=== PATIENT | male | born 1950 | race Caucasian/White ===

== ENCOUNTER 2016-07-20 10:22 | Outpatient (CLI) | payer MEDICARE, MEDICAID ==
[~2016-07-20 10:22] MED LIST: FERUMOXYTOL (NON-ESRD) 510 MG/NS 100 ML IV PRN; NORMAL SALINE 250 ML IV PRN
[2016-07-20 11:13] VITALS: BP 141/81
== END 2016-07-20 11:39 ==
LOC: II 10:22 → 5TH 10:24 → II 11:39
PROVIDERS: ATTEND Specialist
PROC: 3E033GC Introduction of Other Therapeutic Substance into Peripheral Vein, Percutaneous Approach (ICD-10-PCS; principal; 2016-07-20)
DX: D50.9 Iron deficiency anemia, unspecified (principal); N18.3 Chronic kidney disease, stage 3 (moderate)
CPT/HCPCS: 96365; Q0138

== ENCOUNTER 2016-09-09 06:28 | Emergency (ER) | payer MEDICARE ==
[2016-09-09] MEDS ORDERED: DILTIAZEM HCL INJ 25 MG/5 ML VIAL IV ONE (06:55)
[2016-09-09] MEDS ORDERED: NORMAL SALINE 1000 ML 1,000 ML IV ONE (06:55)
--- NOTE | 2016-09-09 07:16 | ER Document Report ---
ED General - General Chief Complaint: Weakness Stated Complaint: NOT FEELING WELL Mode of Arrival: Medic Information source: Patient, [facility] Records Notes: 66 yr old male hx of afib presents with complaints of nausea and vomiting last night. pt notes that he has been feeling weak since his left bka in [facility], has had social workers at his house trying ot help him but no assistance has been given. pt states he lives alone but has friends that help him. TRAVEL OUTSIDE OF THE [place] IN LAST 30 DAYS: No - HPI Onset: Other Onset/Duration: Persistent Quality of pain: No pain Severity: Mild Pain Level: Denies Associated symptoms: Nausea, Vomiting, Weakness Exacerbated by: Denies Relieved by: Denies Similar symptoms previously: No Recently seen / treated by doctor: No - Related Data Allergies/Adverse Reactions: No Known Allergies Allergy (Verified 04/02/13 15:01) Past Medical History - Social History Smoking Status: Never Smoker Cigarette use (# per day): No Chew tobacco use (# tins/day): No Smoking Education Provided: No Family History: Reviewed & Not Pertinent - Past Medical History Cardiac Medical History: Reports: Hx Atrial Fibrillation, Hx Hypercholesterolemia, Hx Hypertension Pulmonary Medical History: Neurological Medical History: Denies: Hx Cerebrovascular Accident Endocrine Medical History: Reports: Hx Diabetes Mellitus Type 2 GI Medical History: Reports: Hx Ulcer Infectious Medical History: Past Surgical History: Reports: Hx Orthopedic Surgery - L leg - Immunizations Hx Diphtheria, Pertussis, Tetanus Vaccination: Yes Hx Pneumococcal Vaccination: 07/08/08 Review of Systems - Review of Systems Notes: REVIEW OF SYSTEMS: CONSTITUTIONAL : Denies fever, chills, or sweats. Denies recent illness. EENT: Denies eye, ear, throat, or mouth pain or symptoms. Denies nasal or sinus congestion or discharge. Denies throat, tongue, or mouth swelling or difficulty swallowing. CARDIOVASCULAR: Denies chest pain. Denies palpitations or racing or irregular heart beat. Denies ankle edema. RESPIRATORY: Denies cough, cold, or chest congestion. Denies shortness of breath, difficulty breathing, or wheezing. GASTROINTESTINAL: Admits to nausea vomiting GENITOURINARY: Denies difficulty urinating, painful urination, burning, frequency, blood in urine, or discharge. MUSCULOSKELETAL: Denies back or neck pain or stiffness. Denies joint pain or swelling. SKIN: Denies rash, lesions or sores. HEMATOLOGIC : Denies easy bruising or bleeding. LYMPHATIC: Denies swollen, enlarged glands. NEUROLOGICAL: Admits to generalized weakness PSYCHIATRIC: Denies anxiety or stress. Denies depression, suicidal ideation, or homicidal ideation. ALL OTHER SYSTEMS REVIEWED AND NEGATIVE. Dictation was performed using [email or web address] voice recognition software PHYSICAL EXAMINATION: GENERAL: Obese female no acute distress HEAD: Atraumatic, normocephalic. EYES: Pupils equal round and reactive to light, extraocular movements intact, sclera anicteric, conjunctiva are normal. ENT: Nares patent, oropharynx clear without exudates. Moist mucous membranes. NECK: Normal range of motion, supple without lymphadenopathy LUNGS: Breath sounds clear to auscultation bilaterally and equal. No wheezes rales or rhonchi. HEART: A. fib RVR ABDOMEN: Soft, nontender, nondistended abdomen. No guarding, no rebound. No masses appreciated. Musculoskeletal: Left BKA NEUROLOGICAL: Cranial nerves grossly intact. Normal speech, normal gait. Normal sensory, motor exams PSYCH: Normal mood, normal affect. SKIN: Warm, Dry, normal turgor, no rashes or lesions noted. Physical Exam - Vital signs Vitals: Resp BP Pulse Ox 11 L 177/111 H 99 09/09/16 06:47 09/09/16 06:47 09/09/16 06:47 Course - Re-evaluation Re-evalutation: 09/09/16 07:16 Physical examination does note A. fib RVR, patient has not been able to hold down his Cardizem at home, he is given a first dose here, lab work for septic workup is pending 09/09/16 08:38 Patient's A. fib RVR has resolved with Cardizem, his laboratory otherwise notes no significant abnormality, at this point I have no specific reason to admit the patient as he is medically stable. Patient has been instructed to follow- up with primary care physician and I will consult social media campaign manager for assistance at home After performing a Medical Screening Examination, I estimate there is LOW risk for ACUTE CORONARY SYNDROME, RESPIRATORY FAILURE, SEPSIS OR MENINGITIS, thus I consider the discharge disposition reasonable. The patient and I have discussed the diagnosis and risks, and we agree with discharging home with close follow- up. We also discussed returning to the Emergency Department immediately if new or worsening symptoms occur. We have discussed the symptoms which are most concerning (e.g., changing or worsening pain, trouble swallowing or breathing, neck stiffness, fever) that necessitate immediate return. - Vital Signs Vital signs: Temp Pulse Resp BP Pulse Ox 15 147/102 H 99 09/09/16 08:01 09/09/16 08:01 09/09/16 08:01 - Laboratory Result Diagrams: 09/09/16 06:59 09/09/16 06:59 Laboratory results interpreted by me: 09/09/16 09/09/16 09/09/16 06:59 06:59 08:00 RDW 14.5 H BUN 22 H Glucose 245 H Urine Protein >=500 H Urine Glucose (UA) 50 H Urine Blood SMALL H - Diagnostic Test Radiology reviewed: Image reviewed, Reports reviewed - EKG Interpretation by Me EKG shows normal: Sinus rhythm, [place], Intervals, QRS Complexes Rate: Tachycardia Rhythm: A.Fib Discharge - Discharge Clinical Impression: Atrial fibrillation with RVR Nausea & vomiting Qualifiers: Vomiting type: unspecified Vomiting Intractability: non-intractable Qualified Code(s): R11.2 - Nausea with vomiting, unspecified Hypertension Qualifiers: Hypertension type: essential hypertension Qualified Code(s): I10 - Essential ( primary) hypertension Condition: Stable Disposition: HOME, SELF-CARE Instructions: Vomiting ([facility]) Additional Instructions: Follow up with your physician tomorrow for further care or return to the ED IMMEDIATELY if symptoms worsen or new concerns occur Prescriptions: Ondansetron [Zofran Odt] 8 mg PO Q6 #14 tab.[email or web address]
[2016-09-09 07:23] LABS: VENOUS BLOOD BASE EXCESS -0.6 mmol/L; VENOUS BLOOD HCO3 25.3 mmol/L (20-32); VENOUS BLOOD PH 7.36 (7.30-7.42)
[2016-09-09 07:32] LABS: ABSOLUTE EOSINOPHILS # (AUTO) 0.2 10^3/uL (0.0-0.6); ABSOLUTE LYMPHOCYTES (AUTO) 1.8 10^3/uL (0.5-4.7); ABSOLUTE MONOCYTES (AUTO) 0.5 10^3/uL (0.1-1.4); ABSOLUTE NEUT (AUTO) 6.2 10^3/uL (1.7-8.2); BASOPHILS % (AUTO) 0.2 % (0-2); EOSINOPHILS % (AUTO) 2.2 % (0-6); HEMOGLOBIN 15.1 g/dL (13.5-17.0); HGB HCT DIFFERENCE 0.3; LYMPHOCYTES % (AUTO) 20.7 % (13-45); MEAN CORPUSCULAR HEMOGLOBIN 28.5 pg (27.0-33.4); MEAN CORPUSCULAR HGB CONC 33.6 g/dL (32.0-36.0); MEAN CORPUSCULAR VOLUME 85 fl (80-97); MONOCYTES % (AUTO) 5.7 % (3-13); RED BLOOD COUNT 5.31 10^6/uL (4.35-5.55); RED CELL DISTRIBUTION WIDTH 14.5 % (11.5-14.0); SEGMENTED NEUTROPHILS % (AUTO) 71.2 % (42-78); WHITE BLOOD COUNT 8.7 10^3/uL (4.0-10.5)
[2016-09-09 07:41] LABS: ALANINE AMINOTRANSFERASE 22 U/L (21-72); ALBUMIN 3.9 g/dL (3.5-5.0); ALKALINE PHOSPHATASE 100 U/L (38-126); ANION GAP 13 (5-19); ASPARTATE AMINO TRANSFERASE 22 U/L (17-59); BILIRUBIN,TOTAL 0.9 mg/dL (0.2-1.3); BLOOD UREA NITROGEN 22 mg/dL (7-20); CALCIUM 10.1 mg/dL (8.4-10.2); CARBON DIOXIDE 25 mmol/L (22-30); CHLORIDE 103 mmol/L (98-107); CREATININE RESULT 0.82 mg/dL (0.52-1.25); GLUCOSE 245 mg/dL (75-110); POTASSIUM 4.1 mmol/L (3.6-5.0); SODIUM 141.4 mmol/L (137-145); TOTAL PROTEIN 7.8 g/dL (6.3-8.2)
[2016-09-09 07:48] LABS: PROTHROMBIN TIME 13.5 SEC (11.4-15.4)
[2016-09-09 08:26] LABS: APPEARANCE,URINE CLEAR; BILIRUBIN,URINE NEGATIVE (NEGATIVE); GLUCOSE, URINE 50 mg/dL (NEGATIVE); KETONES,URINE NEGATIVE (NEGATIVE); LEUKOCYTE ESTERASE,URINE NEGATIVE (NEGATIVE); NITRITE,URINE NEGATIVE (NEGATIVE); PROTEIN,URINE >=500 mg/dL (NEGATIVE); URINE SPECIFIC GRAVITY 1.015; UROBILINOGEN,URINE NEGATIVE mg/dL (<2.0)
--- NOTE | 2016-09-09 09:45 | EKG REPORT ---
SEVERITY:- ABNORMAL ECG - ATRIAL FIBRILLATION, V-RATE 80-135 BORDERLINE T ABNORMALITIES, ANT-LAT LEADS : Confirmed by: Behzad Castro MD 09-Sep-2016 09:44:54
[2016-09-09 10:05] VITALS: BP 161/108
== END 2016-09-09 09:45 | disposition home or self-care (01) ==
LOC: ER 06:28
DX: I48.91 Unspecified atrial fibrillation (principal); I10 Essential (primary) hypertension; E11.9 Type 2 diabetes mellitus without complications; R00.0 Tachycardia, unspecified; R53.1 Weakness; R11.2 Nausea with vomiting, unspecified; Z89.512 Acquired absence of left leg below knee; E66.9 Obesity, unspecified; Z79.899 Other long term (current) drug therapy
CPT/HCPCS: 93005; 99285; 96361; 51701; 96374; 36415; 87040; 87086; 82962; 85025; 85610; 87077; 80053; 81001; 87186; 82803; 83605; 71010; 93010; J3490; J7030

== ENCOUNTER 2016-09-24 11:33 | Emergency (ER) | payer MEDICARE ==
[2016-09-24] MEDS ORDERED: ASPIRIN 81 MG TABLET, CHEWABLE PO ONE (11:54)
[2016-09-24] MEDS ORDERED: DILTIAZEM HCL INJ 25 MG/5 ML VIAL IV ONE (12:03)
[2016-09-24 12:09] LABS: ABSOLUTE EOSINOPHILS # (AUTO) 0.3 10^3/uL (0.0-0.6); ABSOLUTE LYMPHOCYTES (AUTO) 1.6 10^3/uL (0.5-4.7); ABSOLUTE MONOCYTES (AUTO) 0.5 10^3/uL (0.1-1.4); ABSOLUTE NEUT (AUTO) 5.6 10^3/uL (1.7-8.2); BASOPHILS % (AUTO) 0.4 % (0-2); EOSINOPHILS % (AUTO) 3.3 % (0-6); HEMATOCRIT 44.9 % (37.9-51.0); HEMOGLOBIN 15.2 g/dL (13.5-17.0); HGB HCT DIFFERENCE 0.7; LYMPHOCYTES % (AUTO) 20.4 % (13-45); MEAN CORPUSCULAR HEMOGLOBIN 28.5 pg (27.0-33.4); MEAN CORPUSCULAR HGB CONC 33.8 g/dL (32.0-36.0); MEAN CORPUSCULAR VOLUME 84 fl (80-97); MONOCYTES % (AUTO) 5.9 % (3-13); RED BLOOD COUNT 5.32 10^6/uL (4.35-5.55); RED CELL DISTRIBUTION WIDTH 14.1 % (11.5-14.0)
[2016-09-24 12:19] LABS: ALANINE AMINOTRANSFERASE 19 U/L (21-72); ALBUMIN 3.4 g/dL (3.5-5.0); ALKALINE PHOSPHATASE 82 U/L (38-126); ANION GAP 11 (5-19); ASPARTATE AMINO TRANSFERASE 11 U/L (17-59); BILIRUBIN,DIRECT 0.4 mg/dL (0.0-0.4); BILIRUBIN,TOTAL 0.8 mg/dL (0.2-1.3); BLOOD UREA NITROGEN 16 mg/dL (7-20); CALCIUM 9.7 mg/dL (8.4-10.2); CARBON DIOXIDE 29 mmol/L (22-30); CHLORIDE 104 mmol/L (98-107); CREATINE KINASE 24 U/L (55-170); CREATININE RESULT 0.97 mg/dL (0.52-1.25); GLUCOSE 280 mg/dL (75-110); POTASSIUM 4.3 mmol/L (3.6-5.0); SODIUM 144.3 mmol/L (137-145); TOTAL PROTEIN 6.6 g/dL (6.3-8.2)
[2016-09-24 12:31] LABS: CREATINE KINASE MB 0.37 ng/mL (<4.55); TROPONIN I 0.014 ng/mL
--- NOTE | 2016-09-24 13:23 | ER Document Report ---
ED General - General Chief Complaint: Arrhythmia Stated Complaint: ABSCESS Mode of Arrival: Ambulatory Information source: Patient Notes: 66-year-old male the and arm presents with roommates concern for possible abscess. Patient has a history of A. fib did not take his medication this morning. It is noted to be in A. fib RVR. Patient denies any other concerns at this time denies any fevers or chills nausea vomiting or diarrhea TRAVEL OUTSIDE OF THE [place] IN LAST 30 DAYS: No - HPI Onset: Last week Onset/Duration: Persistent Quality of pain: No pain Severity: Mild Pain Level: Denies Associated symptoms: Other Exacerbated by: Denies Relieved by: Denies Similar symptoms previously: Yes Recently seen / treated by doctor: Yes - Related Data Allergies/Adverse Reactions: No Known Allergies Allergy (Verified 04/02/13 15:01) Past Medical History - Social History Smoking Status: Never Smoker Cigarette use (# per day): No Chew tobacco use (# tins/day): No Smoking Education Provided: No Family History: Reviewed & Not Pertinent - Past Medical History Cardiac Medical History: Reports: Hx Atrial Fibrillation, Hx Hypercholesterolemia, Hx Hypertension Pulmonary Medical History: Neurological Medical History: Denies: Hx Cerebrovascular Accident Endocrine Medical History: Reports: Hx Diabetes Mellitus Type 2 GI Medical History: Reports: Hx Ulcer Infectious Medical History: Past Surgical History: Reports: Hx Orthopedic Surgery - L leg - Immunizations Hx Diphtheria, Pertussis, Tetanus Vaccination: Yes Hx Pneumococcal Vaccination: 07/08/08 Review of Systems - Review of Systems Notes: REVIEW OF SYSTEMS: CONSTITUTIONAL : Denies fever, chills, or sweats. Denies recent illness. EENT: Denies eye, ear, throat, or mouth pain or symptoms. Denies nasal or sinus congestion or discharge. Denies throat, tongue, or mouth swelling or difficulty swallowing. CARDIOVASCULAR: A. fib RESPIRATORY: Denies cough, cold, or chest congestion. Denies shortness of breath, difficulty breathing, or wheezing. GASTROINTESTINAL: Denies abdominal pain or distention. Denies nausea, vomiting , or diarrhea. Denies blood in vomitus, stools, or per rectum. Denies black, tarry stools. Denies constipation. GENITOURINARY: Denies difficulty urinating, painful urination, burning, frequency, blood in urine, or discharge. MUSCULOSKELETAL: Denies back or neck pain or stiffness. Denies joint pain or swelling. SKIN: Abscess on buttocks. HEMATOLOGIC : Denies easy bruising or bleeding. LYMPHATIC: Denies swollen, enlarged glands. NEUROLOGICAL: Denies confusion or altered mental status. Denies passing out or loss of consciousness. Denies dizziness or lightheadedness. Denies headache. Denies weakness or paralysis or loss of use of either side. Denies problems with gait or speech. Denies sensory loss, numbness, or tingling. Denies seizures. PSYCHIATRIC: Denies anxiety or stress. Denies depression, suicidal ideation, or homicidal ideation. ALL OTHER SYSTEMS REVIEWED AND NEGATIVE. Dictation was performed using [employer] voice recognition software PHYSICAL EXAMINATION: GENERAL: Well-appearing, well-nourished and in no acute distress. HEAD: Atraumatic, normocephalic. EYES: Pupils equal round and reactive to light, extraocular movements intact, sclera anicteric, conjunctiva are normal. ENT: Nares patent, oropharynx clear without exudates. Moist mucous membranes. NECK: Normal range of motion, supple without lymphadenopathy LUNGS: Breath sounds clear to auscultation bilaterally and equal. No wheezes rales or rhonchi. HEART: Irregular rate rhythm tachycardic ABDOMEN: Soft, nontender, nondistended abdomen. No guarding, no rebound. No masses appreciated. Musculoskeletal: Left BKA NEUROLOGICAL: Cranial nerves grossly intact. Normal speech, normal gait. Normal sensory, motor exams PSYCH: Normal mood, normal affect. SKIN: bilateral sacral decub ulcers stage 1 Physical Exam - Vital signs Vitals: Pulse Ox 99 09/24/16 12:01 Course - Re-evaluation Re-evalutation: 09/24/16 13:24 No abscess was noted, I examined the back with nurse present and note bilateral sacral decubitus ulcers, dressings have been placed. Patient was given Cardizem for A. fib RVR and heart rate improved significantly. Patient denies any other concerns states he feels fine at this time I will DC home since he looks so well After performing a Medical Screening Examination, I estimate there is LOW risk for ACUTE CORONARY SYNDROME, RESPIRATORY FAILURE, SEPSIS OR MENINGITIS, thus I consider the discharge disposition reasonable. The patient and I have discussed the diagnosis and risks, and we agree with discharging home with close follow- up. We also discussed returning to the Emergency Department immediately if new or worsening symptoms occur. We have discussed the symptoms which are most concerning (e.g., changing or worsening pain, trouble swallowing or breathing, neck stiffness, fever) that necessitate immediate return. - Vital Signs Vital signs: Temp Pulse Resp BP Pulse Ox 99 09/24/16 12:01 - Laboratory Result Diagrams: 09/24/16 11:51 09/24/16 11:51 Laboratory results interpreted by me: 09/24/16 09/24/16 09/24/16 11:51 11:51 11:56 RDW 14.1 H Glucose 280 H POC Glucose 269 H AST 11 L ALT 19 L Creatine Kinase 24 L Albumin 3.4 L Discharge - Discharge Clinical Impression: Atrial fibrillation with RVR Sacral decubitus ulcer Qualifiers: Pressure ulcer stage: stage 1 Qualified Code(s): L89.151 - Pressure ulcer of sacral region, stage 1 Condition: Stable Disposition: HOME, SELF-CARE Instructions: Decubitus Ulcer ([facility]) Additional Instructions: Please follow-up with your primary care physician for further treatment and care of your decubitus ulcer Please take your atrial fibrillation medication as prescribed Return immediately if there are any other concerns
--- NOTE | 2016-09-24 13:45 | EKG REPORT ---
SEVERITY:- ABNORMAL ECG - ATRIAL FIBRILLATION, V-RATE 97-183 BORDERLINE T ABNORMALITIES, ANT-LAT LEADS : Confirmed by: Behzad Castro MD 24-Sep-2016 13:44:31
[2016-09-24 14:49] VITALS: BP 175/128
== END 2016-09-24 14:49 | disposition home or self-care (01) ==
LOC: ER 11:33
DX: L89.151 Pressure ulcer of sacral region, stage 1 (principal); I48.91 Unspecified atrial fibrillation; L02.91 Cutaneous abscess, unspecified
CPT/HCPCS: 93005; 99285; 96374; 36415; 82553; 82962; 82550; 85025; 80053; 84484; 93010; J3490

== ENCOUNTER 2016-10-14 17:38 | Inpatient (IN) | payer MEDICARE, MEDICAID ==
--- NOTE | 2016-10-14 18:08 | ER Document Report ---
ED General - General Stated Complaint: ALTERED MENTAL STATUS Time seen by provider: 18:03 Mode of Arrival: Ambulatory Information source: Patient Notes: This is a 66-year-old man with multiple medical problems is brought in by EMS because of decreased responsiveness, not eating and drinking, increased weakness. The patient lives alone and EMS was notified by the patient's friend who came over. He has a history of hypertension, atrial fibrillation ([place] ), dyslipidemia, BPH and he has a left bka. The patient was formerly a resident of [facility] and discharged himself approximately one month ago. TRAVEL OUTSIDE OF THE [place] IN LAST 30 DAYS: No - HPI Onset: Last week Onset/Duration: Gradual Quality of pain: No pain Severity: None Pain Level: Denies Associated symptoms: Nausea, Weakness. denies: Fever, Shortness of breath Exacerbated by: Denies Relieved by: Denies Similar symptoms previously: No Recently seen / treated by doctor: No - Related Data Allergies/Adverse Reactions: No Known Allergies Allergy (Verified 04/02/13 15:01) Home Medications: Current Home Medications Apixaban [Eliquis 2.5 mg Tablet] 2.5 mg PO Q12H 10/14/16 [History] Diltiazem HCl [Cartia Xt] 180 mg PO Q12H 10/14/16 [History] Docusate Sodium [Dok] 100 mg PO BID 10/14/16 [History] Folic Acid [Folvite 1 mg Tablet] 1 mg PO DAILY 10/14/16 [History] Hydralazine HCl 50 mg PO Q8H 10/14/16 [History] Lisinopril [Prinivil 2.5 mg Tablet] 2.5 mg PO DAILY 10/14/16 [History] Ondansetron [Zofran Odt] 8 mg PO Q6H 10/14/16 [History] Pravastatin Sodium [Pravachol] 40 mg PO DAILY 10/14/16 [History] Sertraline HCl [Zoloft 50 mg Tablet] 50 mg PO DAILY 10/14/16 [History] Tamsulosin HCl [Flomax 0.4 mg Cap.sr] 0.4 mg PO DAILY 10/14/16 [History] Past Medical History - General Information source: Patient, Emergency Med Personnel - Social History Smoking Status: Never Smoker Cigarette use (# per day): No Chew tobacco use (# tins/day): No Frequency of alcohol use: None Drug Abuse: None Lives with: Alone Family History: Reviewed & Not Pertinent Patient has suicidal ideation: No Patient has homicidal ideation: No - Past Medical History Cardiac Medical History: Reports: Hx Atrial Fibrillation, Hx Hypercholesterolemia, Hx Hypertension Pulmonary Medical History: Neurological Medical History: Denies: Hx Cerebrovascular Accident Endocrine Medical History: Reports: Hx Diabetes Mellitus Type 2 GI Medical History: Reports: Hx Ulcer Infectious Medical History: Past Surgical History: Reports: Hx Orthopedic Surgery - L leg - Immunizations Hx Diphtheria, Pertussis, Tetanus Vaccination: Yes Hx Pneumococcal Vaccination: 07/08/08 Review of Systems - Review of Systems Notes: Review of systems: Constitutional: Denies fever, chills. EENT: Denies ear pain, sinus tenderness, throat pain, throat swelling. Cardiovascular: Tachycardia Respiratory: Denies wheezing, cough, hemoptysis. Abdomen: Decreased by mouth intake. Denies abdominal pain, nausea, vomiting, diarrhea. Denies BRBPR or melena. Genitourinary: Denies dysuria, pyuria, hematuria, flank pain. Musculoskeletal: Left BKA. Denies joint pain or swelling, denies back pain. Neurologic: Increased weakness. Denies headache, photophobia. Skin: Denies rash, lesions. Physical Exam - Vital signs Vitals: Temp Resp Pulse Ox 99.7 F 22 H 100 10/14/16 17:50 10/14/16 17:50 10/14/16 17:50 Notes: Physical exam: GENERAL: 66-year-old man, alert, minimally verbal (baseline apparently), no acute distress, he looks quite dehydrated, he is tachycardic. Temperature 99.7 rectally. HEAD: Atraumatic, normocephalic. EYES: Pupils equal round and reactive to light, extraocular movements intact, sclera anicteric, conjunctiva are normal. ENT: Dry mucous membranes. NECK: Normal range of motion, supple without lymphadenopathy or JVD. LUNGS: Breath sounds clear to auscultation bilaterally and equal. No wheezes rales or rhonchi. HEART: Tachycardia without murmurs, rubs or gallops. Back: Patient does have grade 1 sacral decubiti which is fairly superficial. Rectal: Brown stool, sent for study Perineum: No evidence of infection Penis: There is pus at the urethral meatus ABDOMEN: Soft, normoactive bowel sounds. No tenderness to palpation. No guarding, no rebound. No masses appreciated. EXTREMITIES: Left BKA. No clubbing or cyanosis. NEUROLOGICAL: Cranial nerves II through XII grossly intact. Speech minimal ( reported by EMS to be at baseline). He is nonambulatory at baseline. SKIN: Appears dehydrated. Course - Vital Signs Vital signs: Temp Pulse Resp BP Pulse Ox 99.7 F 21 H 142/103 H 98 10/14/16 17:50 10/14/16 20:19 10/14/16 22:01 10/14/16 22:01 - Laboratory Result Diagrams: 10/14/16 18:30 10/14/16 18:30 Laboratory results interpreted by me: 10/14/16 10/14/16 10/14/16 18:15 18:30 18:30 RBC 5.72 H RDW 14.7 H Sodium 145.7 H BUN 21 H Glucose 239 H AST 16 L Creatine Kinase 198 H Urine Protein >=500 H Urine Glucose (UA) 50 H Urine Blood MODERATE H Ur Leukocyte Esterase LARGE H - Diagnostic Test Radiology reviewed: Image reviewed, Reports reviewed - Chest x-ray shows no infiltrates - EKG Interpretation by Me Rate: Tachycardia Rhythm: A.Fib - EKG shows atrial fibrillation with a ventricular rate of 129, nonspecific ST changes laterally. Critical Care Note - Critical Care Note Total time excluding time spent on procedures (mins): 60 Discharge - Discharge Clinical Impression: A. fib with RVR, UTI, dehydration Condition: Serious Disposition: ADMITTED INPATIENT Admitting Provider: Hospitalist - Dr. Rand Unit Admitted: [facility]
[2016-10-14] MEDS ORDERED: NORMAL SALINE 1000 ML 1,000 ML IV PRN ×2 (18:11→19:57)
[2016-10-14 18:50] LABS: APPEARANCE,URINE CLOUDY; BILIRUBIN,URINE NEGATIVE (NEGATIVE); GLUCOSE, URINE 50 mg/dL (NEGATIVE); KETONES,URINE NEGATIVE (NEGATIVE); LEUKOCYTE ESTERASE,URINE LARGE (NEGATIVE); NITRITE,URINE NEGATIVE (NEGATIVE); PROTEIN,URINE >=500 mg/dL (NEGATIVE); URINE SPECIFIC GRAVITY 1.023; UROBILINOGEN,URINE NEGATIVE mg/dL (<2.0)
[2016-10-14 18:51] LABS: ABSOLUTE EOSINOPHILS # (AUTO) 0.1 10^3/uL (0.0-0.6); ABSOLUTE LYMPHOCYTES (AUTO) 1.7 10^3/uL (0.5-4.7); ABSOLUTE MONOCYTES (AUTO) 0.6 10^3/uL (0.1-1.4); ABSOLUTE NEUT (AUTO) 7.1 10^3/uL (1.7-8.2); BASOPHILS % (AUTO) 0.5 % (0-2); EOSINOPHILS % (AUTO) 0.8 % (0-6); HEMATOCRIT 47.9 % (37.9-51.0); HEMOGLOBIN 16.1 g/dL (13.5-17.0); HGB HCT DIFFERENCE 0.4; LYMPHOCYTES % (AUTO) 18.1 % (13-45); MEAN CORPUSCULAR HEMOGLOBIN 28.1 pg (27.0-33.4); MEAN CORPUSCULAR HGB CONC 33.5 g/dL (32.0-36.0); MEAN CORPUSCULAR VOLUME 84 fl (80-97); MONOCYTES % (AUTO) 6.5 % (3-13); RED BLOOD COUNT 5.72 10^6/uL (4.35-5.55); RED CELL DISTRIBUTION WIDTH 14.7 % (11.5-14.0); SEGMENTED NEUTROPHILS % (AUTO) 74.1 % (42-78); WHITE BLOOD COUNT 9.6 10^3/uL (4.0-10.5)
[2016-10-14 18:56] LABS: PROTHROMBIN TIME 14.1 SEC (11.4-15.4)
[2016-10-14 19:05] LABS: URINE BARBITURATES SCREEN NEGATIVE; URINE METHADONE SCREEN NEGATIVE; URINE OPIATES LOW NEGATIVE; URINE PHENCYCLIDINE SCREEN NEGATIVE
[2016-10-14 19:12] LABS: ALANINE AMINOTRANSFERASE 24 U/L (21-72); ALBUMIN 3.7 g/dL (3.5-5.0); ALKALINE PHOSPHATASE 89 U/L (38-126); ANION GAP 17 (5-19); ASPARTATE AMINO TRANSFERASE 16 U/L (17-59); BILIRUBIN,DIRECT 0.4 mg/dL (0.0-0.4); BILIRUBIN,TOTAL 1.2 mg/dL (0.2-1.3); BLOOD UREA NITROGEN 21 mg/dL (7-20); CALCIUM 9.8 mg/dL (8.4-10.2); CARBON DIOXIDE 24 mmol/L (22-30); CHLORIDE 105 mmol/L (98-107); CREATINE KINASE 198 U/L (55-170); CREATININE RESULT 0.84 mg/dL (0.52-1.25); GLUCOSE 239 mg/dL (75-110); POTASSIUM 4.4 mmol/L (3.6-5.0); SODIUM 145.7 mmol/L (137-145); TOTAL PROTEIN 7.5 g/dL (6.3-8.2)
[2016-10-14 19:21] LABS: CREATINE KINASE MB 0.9 ng/mL (<4.55)
[2016-10-14 19:25] LABS: TROPONIN I 0.03 ng/mL
[2016-10-14] MEDS ORDERED: CEFTRIAXONE 2 GM/D5W RTU 50 ML IV ONE (19:33)
[2016-10-14] MEDS ORDERED: ONDANSETRON HCL INJ/PF 4 MG/2 ML SDV IV ONE (19:40)
[2016-10-14] MEDS ORDERED: MORPHINE SULFATE 10 MG/ML INJ IV PRN (19:40)
[2016-10-14] MEDS ORDERED: DILTIAZEM HCL INJ 25 MG/5 ML VIAL IV ONE (19:57)
--- NOTE | 2016-10-14 20:50 | EKG REPORT ---
SEVERITY:- ABNORMAL ECG - ATRIAL FIBRILLATION, V-RATE 82-197 BORDERLINE PROLONGED QT INTERVAL : Confirmed by: Debra Hummel 14-Oct-2016 20:49:11
[2016-10-15] MEDS ORDERED: IPRATROPIUM/ALBUTEROL 0.5-2.5 MG/3 ML AMPUL NEB PRN (00:12)
[2016-10-15] MEDS ORDERED: DEXTROSE 40% GEL 15 GM TUBE PO PRN ×2 (00:12)
[2016-10-15] MEDS ORDERED: DEXTROSE 50%-WATER 25 GM/50 ML DISP.SYRIN IV PRN ×2 (00:12)
[2016-10-15] MEDS ORDERED: INSULIN LISPRO 100 UNIT/ML 3 ML VIAL SUBCUT PRN (00:12)
[2016-10-15] MEDS ORDERED: GLUCAGON,HUMAN RECOMB 1 MG INJ IM PRN (00:12)
[2016-10-15] MEDS ORDERED: 1/2 NORMAL SALINE 1,000 ML IV PRN (00:14)
[2016-10-15 00:15] LABS: ADD ON TESTING BLD IN LAB ACKNOWLEDGE
[2016-10-15] MEDS ORDERED: ENALAPRILAT DIHYDRATE INJ/PF 1.25 MG/1 ML SDV IV PRN (00:23)
[2016-10-15 00:31] LABS: MAGNESIUM 1.6 mg/dL (1.6-2.3)
[2016-10-15 00:33] LABS: ALCOHOL < 10 mg/dL (NONE DETECTED)
--- NOTE | 2016-10-15 00:57 | PDOC H&P ---
History of Present Illness Admission Date/PCP: 10/14/16 22:26 PCP Uncertain Patient complains of: AMS History of Present Illness: SLY SCHULTZ JR is a 66 year old obese male with reported underlying type II diabetes mellitus, chronic atrial fibrillation, on Eliquis for same hypertension, hyperlipidemia, and probable benign prostatic hypertrophy who presents to the emergency room by EMS for evaluation of above complaint. Patient has been discussed with emergency room physician who evaluated the patient. Patient is oriented only to the fact that he is in the hospital and basically answers virtually no questions and is able to provide no history whatsoever in terms of acute or chronic events, review of systems, personal habits, family history, etc. No friends or family are present. Old inpatient records are reviewed. He does look at speaker, and is cooperative when asked to perform basic tasks such as hand facilities director and flexion and extension of his arms but again, does not interact otherwise in a meaningful fashion and can provide no information, as noted above. He does deny being in pain. Speaks in a barely audible whisper. According to the emergency room physician notes, he was a resident at [facility] and discharged himself approximately one month ago. Review of old records reveals he has a habit of leaving the hospital AGAINST MEDICAL ADVICE. Lives alone; EMS was called by a friend who came over and found him to with decreased responsiveness, not eating or drinking, and increasing generalized weakness. Was initially noted to be in atrial fibrillation with rapid ventricular response , but this responded nicely to a single bolus dose of Cardizem. Cardizem drip has not been required. . Laboratory results are listed in [facility] and are reviewed. X-ray summary results are listed below, with full report(s) reviewed. . EKG reviewed. Social history/personal habits: No information available this point in time. Allergies/adverse reactions NKDA. Home medications home medications are reviewed by bottle review. Home medications initially autopopulated into [employer] may not accurately reflect patient's true medications, dosages, and/or frequencies. shift lab technician to reconcile medications. Unfortunately, patient cannot provide any information related to his medications /dosages/frequencies. REVIEW OF SYSTEMS: See history and present illness.No further information available this point in time. PHYSICAL EXAMINATION: 106.6 kg. Height is not recorded on the chart. Pulse 110 and slightly irregular. 99% saturation on room air. Manual blood pressure 150/98. Respirations are 16 and unlabored. Temperature 99.7. Obese somewhat chronically ill-appearing male who nevertheless appears a number of years younger than his stated age. He is awake alert and looking about the room somewhat. See history and present illness. The initial evaluating emergency room physician was asked to come to bedside, and did confirm that this has been patient's status basically since arrival in the emergency room. Skin is warm and dry. No grossly obvious evidence of rash in areas of skin examined. No subcutaneous nodules palpated. ENT: Hearing grossly normal to normal conversation. Tongue midline on protrusion pink and slightly tacky. Eyes: No scleral icterus. Pupils equal and reactive to light at 4 mm. Saxon conjunctivae. No raccoon eyes. Neck is supple and nontender to gentle active range of motion and palpation. Midline trachea. No palpable thyroid nodule mass enlargement or tenderness. Lymphatic: No palpable cervical or clavicular nodes. Neck and lymphatic exams limited by patient body habitus. Psychiatric: Not able to be adequately evaluated due to his current status. Lungs: Auscultation reveals clear and equal breath sounds bilaterally. No use of accessory respiratory muscles. Cardiovascular: Heart slightly irregular rate and rhythm, without gallop murmur or rub. No carotid or abdominal aortic bruits. No ankle or pedal edema. Faintly palpable dorsalis pedis pulse. He is status post left below-knee amputation. Abdomen: soft, obese, nontender with positive bowel sounds. Unable to adequately evaluate abdomen for masses or organomegaly due to body habitus. Extremities: Hands and right foot warm and dry. No calf tenderness to compression. No grossly obvious visual evidence of calf swelling. Gentle manipulation of lower extremities fails to reveal any obvious evidence of injury or instability to knee hips or ankle. Neurologic: Moves upper extremities grossly normally. Hand facilities director, biceps and triceps 5 over 5 and symmetric. Right Patellar reflex absent. Absent Babinski. Light touch can't be adequately determined due to his current status.. Dorsiflexion and plantarflexion of right foot 5 over 5. Past Medical History Cardiac Medical History: Reports: Atrial Fibrillation, Hyperlipidema, Hypertension Pulmonary Medical History: Neurological Medical History: Endocrine Medical History: Reports: Diabetes Mellitus Type 2 GI Medical History: Hematology: Denies: Anemia, Sickle Cell Disease Past Surgical History Past Surgical History: Reports: Orthopedic Surgery - L leg Social History Information Source: Emergency Med Personnel, [facility] Records Lives with: Alone Smoking Status: Never Smoker Frequency of Alcohol Use: None Hx Recreational Drug Use: No Drugs: None Hx Prescription Drug Abuse: No - Advance Directive Resuscitation Status: Full Code Surrogate healthcare decision maker:: Uncertain Family History Family History: Reviewed & Not Pertinent Parental Family History Reviewed: No - patient not able to provide any information related to same. Children Family History Reviewed: No - patient not able to provide any information related to same. Sibling(s) Family History Reviewed.: No - patient not able to provide any information related to same. Medication/Allergy Home Medications: Apixaban [Eliquis 2.5 mg Tablet] 2.5 mg PO Q12 10/15/16 Diltiazem HCl [Cartia Xt] 180 mg PO Q12 10/15/16 Docusate Sodium [Dok] 100 mg PO BID 10/15/16 Generlac 10gm/15ml 15 ml PO QHS 10/15/16 Insulin Aspart Protam & Aspart [Novolog Mix 70-30 Flexpen Syrn] 10 units SQ NOON 10/15/16 Insulin Glargine,Hum.rec.anlog [Lantus Solostar] 10 units SQ QHS 10/15/16 Ondansetron [Zofran Odt] 8 mg PO Q6H 10/15/16 RX: Folic Acid [Folvite 1 mg Tablet] 1 mg PO DAILY 10/15/16 RX: Hydralazine HCl [Apresoline 50 mg Tablet] 50 mg PO Q8 10/15/16 RX: Lisinopril [Prinivil 2.5 mg Tablet] 2.5 mg PO DAILY 10/15/16 RX: Pravastatin Sodium [Pravachol] 40 mg PO DAILY 10/15/16 Sertraline HCl [Zoloft 50 mg Tablet] 50 mg PO DAILY 10/15/16 Tamsulosin HCl [Flomax 0.4 mg Cap.sr] 0.4 mg PO QHS 10/15/16 Allergies/Adverse Reactions: No Known Allergies Allergy (Verified 04/02/13 15:01) Physical Exam Vital Signs: Temp Pulse Resp BP Pulse Ox 99.7 F 21 H 150/98 H 98 10/14/16 17:50 10/14/16 20:19 10/14/16 23:52 10/14/16 22:01 Results Laboratory Results: 10/14/16 23:25 Magnesium 1.6 10/14/16 23:25 Troponin I 0.021 Impressions: Chest X-Ray 10/14/16 18:08 IMPRESSION: NO ACUTE RADIOGRAPHIC FINDING IN THE CHEST. Assessment & Plan - Diagnosis (1) Atrial fibrillation with RVR Is this a current diagnosis for this admission?: YesPlan: Has not required Cardizem drip.Resume home medications as appropriate once these have been determined and reviewed. (2) Hypernatremia Is this a current diagnosis for this admission?: YesPlan: Appropriate IV fluids. Follow-up chemistry. (3) UTI (urinary tract infection) Qualifiers: Urinary tract infection type: site unspecified Is this a current diagnosis for this admission?: YesPlan: Blood and urine cultures. Previous culture results noted. Rocephin. Knee high SCD for DVT prophylaxis, ; with patient on systemic anticoagulation, no need for Lovenox or heparin at this point in time. Time spent in evaluation and management of patient: 53 minutes. (4) Anticoagulant long-term use Is this a current diagnosis for this admission?: YesPlan: Resume home medications as appropriate once these have been determined and reviewed. (5) Diabetes mellitus, type II Qualifiers: Diabetes mellitus complication status: with circulatory complication Diabetes mellitus middle or intermediate school principal insulin use: unspecified middle or intermediate school principal insulin use status Is this a current diagnosis for this admission?: YesPlan: Accu-Cheks with appropriate sliding scale coverage. Appears to be diet controlled diabetes mellitus. (6) Hyperlipidemia Qualifiers: Hyperlipidemia type: unspecified Qualified Code(s): E78.5 - Hyperlipidemia, unspecified Is this a current diagnosis for this admission?: YesPlan: Resume home medications as appropriate once these have been determined and reviewed. (7) Hypertension Qualifiers: Hypertension type: essential hypertension Qualified Code(s): I10 - Essential (primary) hypertension Is this a current diagnosis for this admission?: YesPlan: Resume home medications as appropriate once these have been determined and reviewed. (8) Acute encephalopathy Is this a current diagnosis for this admission?: YesPlan: Uncertain etiology. Suspect at least partially due to dehydration, along with urinary tract infection. Will check CT scan of brain without contrast. Swallow screen pending. Should clear with time and treatment. Discharge planning consult; patient likely not safe to live alone. - Inpatient Certification Based on my medical assessment, after consideration of the patient's comorbidities, presenting symptoms, or acuity I expect that the services needed warrant INPATIENT care.: Yes I certify that my determination is in accordance with my understanding of Medicare's requirements for reasonable and necessary INPATIENT services [42 CFR 412.3e].: Yes Medical Necessity: Significant Comorbidiites Make Outpatient Treatment Too Risky , Need Close Monitoring Due to Risk of Patient Decompensation, Need For IV Fluids, Need For Continuous Telemetry Monitoring, Need for IV Antibiotics, Risk of Complication if Not Cared For in Hospital Post Hospital Care: D/C or Transfer Summary
[2016-10-15] MEDS ORDERED: HYDRALAZINE HCL INJ/PF 20 MG/1 ML SDV IV PRN (06:05)
[2016-10-15 06:31] LABS: VENOUS BLOOD BASE EXCESS -3.3 mmol/L; VENOUS BLOOD HCO3 21.7 mmol/L (20-32); VENOUS BLOOD PCO2 39.2 mmHg (35-63); VENOUS BLOOD PH 7.36 (7.30-7.42)
[2016-10-15 06:35] LABS: ABSOLUTE EOSINOPHILS # (AUTO) 0.1 10^3/uL (0.0-0.6); ABSOLUTE LYMPHOCYTES (AUTO) 1.6 10^3/uL (0.5-4.7); ABSOLUTE MONOCYTES (AUTO) 0.7 10^3/uL (0.1-1.4); BASOPHILS % (AUTO) 0.2 % (0-2); EOSINOPHILS % (AUTO) 1.5 % (0-6); HEMATOCRIT 43.4 % (37.9-51.0); HEMOGLOBIN 14.4 g/dL (13.5-17.0); HGB HCT DIFFERENCE -0.2; LYMPHOCYTES % (AUTO) 19.4 % (13-45); MEAN CORPUSCULAR HGB CONC 33.2 g/dL (32.0-36.0); MEAN CORPUSCULAR VOLUME 84 fl (80-97); MONOCYTES % (AUTO) 7.9 % (3-13); RED BLOOD COUNT 5.15 10^6/uL (4.35-5.55); RED CELL DISTRIBUTION WIDTH 14.3 % (11.5-14.0); WHITE BLOOD COUNT 8.5 10^3/uL (4.0-10.5)
[2016-10-15 06:49] LABS: ANION GAP 13 (5-19); BLOOD UREA NITROGEN 19 mg/dL (7-20); CALCIUM 8.9 mg/dL (8.4-10.2); CARBON DIOXIDE 24 mmol/L (22-30); CHLORIDE 108 mmol/L (98-107); CREATININE RESULT 0.81 mg/dL (0.52-1.25); GLUCOSE 204 mg/dL (75-110); POTASSIUM 4.2 mmol/L (3.6-5.0); SODIUM 144.6 mmol/L (137-145)
[2016-10-15] MEDS ORDERED: (PENDING PHARMACY ID) (Diltiazem Hcl [Cartia Xt] 180 MG) PO SCH (09:45)
[2016-10-15] MEDS ORDERED: (PENDING PHARMACY ID) (Lisinopril [Prinivil 2.5 Mg Tablet] 2.5 MG) PO SCH (10:00)
[2016-10-15] MEDS ORDERED: (PENDING PHARMACY ID) (Pravastatin Sodium [Pravachol] 40 MG) PO SCH (10:00)
[2016-10-15] MEDS ORDERED: ENOXAPARIN SODIUM INJ 100 MG/1 ML DISP.SYRIN SUBCUT SCH (10:00)
[2016-10-15] MEDS ORDERED: METOPROLOL TARTRATE PF/INJ 5 MG/5 ML SDV IV SCH (12:00)
[2016-10-15] MEDS: CEFTRIAXONE 1 GM/D5W RTU 50 ML IV SCH (13:33)
[2016-10-15] MEDS: LISINOPRIL 5 MG TABLET PO SCH (13:34)
[2016-10-15] MEDS: SERTRALINE HCL 50 MG TABLET PO SCH (13:35)
[2016-10-15] MEDS: DOCUSATE SODIUM 100 MG CAPSULE PO SCH ×2 (13:35→18:10)
[2016-10-15] MEDS: FOLIC ACID 1 MG TABLET PO SCH (13:35)
[2016-10-15] MEDS: DILTIAZEM HCL 180 MG CAPSULE.CR PO SCH ×2 (13:36→22:51)
--- NOTE | 2016-10-15 15:40 | PDOC PROGRESS REPORT ---
Subjective Progress Note for:: 10/15/16 Subjective:: Patient feels no better or worse than when he arrived. He still seems to have difficulty speaking, and particular word finding and talking very softly. His affect is unusual. He is not sure how long his been feeling bad. Patient denies fever, chills, headache, new focal weakness, chest pain, shortness of breath, abdominal pain, nausea, vomiting, diarrhea, constipation. Physical Exam Vital Signs: Temp Pulse Resp BP Pulse Ox 99.7 F 135 H 25 H 135/107 H 97 10/14/16 17:50 10/15/16 12:13 10/15/16 08:00 10/15/16 13:36 10/15/16 10:31 GENERAL: No acute distress HEENT: Conjunctiva clear, nonicteric, moist mucous membranes, no JVD, midline trachea RESPIRATORY: Clear to auscultation bilaterally, no wheezes, no rhonchi CARDIAC: Regular rate and rhythm, no murmurs/gallops/rubs ABDOMEN: Soft, nondistended, nontender, positive bowel sounds, no rebound, no guarding EXTREMETIES: No edema, left BKA NEUROLOGIC: Alert, expressive aphasia, oriented to person/place/time, CN's grossly intact, no focal deficits SKIN: No rash, wounds PSYCH: Unusual affect Results Laboratory Results: 10/15/16 06:18 10/15/16 06:18 10/15/16 10/15/16 10/15/16 06:18 06:18 06:18 WBC 8.5 RBC 5.15 Hgb 14.4 Hct 43.4 MCV 84 MCH 28.0 MCHC 33.2 RDW 14.3 H Plt Count 174 Seg Neutrophils % 71.0 Lymphocytes % 19.4 Monocytes % 7.9 Eosinophils % 1.5 Basophils % 0.2 Absolute Neutrophils 6.0 Absolute Lymphocytes 1.6 Absolute Monocytes 0.7 Absolute Eosinophils 0.1 Absolute Basophils 0.0 VBG pH 7.36 VBG pCO2 39.2 VBG HCO3 21.7 VBG Base Excess -3.3 Sodium 144.6 Potassium 4.2 Chloride 108 H Carbon Dioxide 24 Anion Gap 13 BUN 19 Creatinine 0.81 Est GFR ( Amer) > 60 Est GFR (Non-Af Amer) > 60 Glucose 204 H Calcium 8.9 10/15/16 06:18 Troponin I 0.023 Impressions: Chest X-Ray 10/14/16 18:08 IMPRESSION: NO ACUTE RADIOGRAPHIC FINDING IN THE CHEST. Head CT 10/15/16 00:00 IMPRESSION: CHRONIC CHANGES OF ATROPHY AND MICROVASCULAR ISCHEMIA. NO ACUTE PROCESS. Head MRI 10/15/16 08:05 IMPRESSION: Extensive white matter disease from chronic small vessel ischemic change Single punctate focus of acute nonhemorrhagic ischemic change left posterior frontal subcortical white matter on diffusion imaging Assessment & Plan - Diagnosis (1) Acute encephalopathy Is this a current diagnosis for this admission?: YesPlan: Likely secondary to urinary tract infection and acute stroke. Continue supportive care. (2) Acute CVA (cerebrovascular accident) Is this a current diagnosis for this admission?: YesPlan: Small acute left frontal ischemic stroke noted on MRI of brain. Continue Eliquis secondary to atrial fibrillation. Continue Lipitor. Physical therapy/ speech therapy/occupational therapy evaluation. Patient was living alone and I think he is going to need to go to rehabilitation facility after discharge. (3) Atrial fibrillation with RVR Is this a current diagnosis for this admission?: YesPlan: Heart rate stable at this time. Continue Cardizem CD 180 mg twice daily. Continue Eliquis. (4) UTI (urinary tract infection) Qualifiers: Urinary tract infection type: site unspecified Is this a current diagnosis for this admission?: YesPlan: Continue Rocephin pending further urine culture and blood cultures. (6) Diabetes mellitus, type II Qualifiers: Diabetes mellitus complication status: with circulatory complication Diabetes mellitus intermodal customer service insulin use: unspecified assisted insulin use status Is this a current diagnosis for this admission?: YesPlan: Lantus 10 units nightly. Sliding scale insulin. (7) Hyperlipidemia Qualifiers: Hyperlipidemia type: unspecified Qualified Code(s): E78.5 - Hyperlipidemia, unspecified Is this a current diagnosis for this admission?: YesPlan: Continue Lipitor. (8) Hypertension Qualifiers: Hypertension type: essential hypertension Qualified Code(s): I10 - Essential (primary) hypertension Is this a current diagnosis for this admission?: YesPlan: Resume home medications which include Cardizem, hydralazine, lisinopril. When necessary IV hydralazine. (9) BPH (benign prostatic hyperplasia) Is this a current diagnosis for this admission?: YesPlan: Flomax. - Time Time Spent with patient: 35 or more minutes Anticipated discharge: Acute Rehab Within: within 72 hours
[2016-10-15] MEDS: APIXABAN 2.5 MG TABLET PO SCH ×2 (16:45→18:10)
[2016-10-15] MEDS: HYDRALAZINE HCL 50 MG TABLET PO SCH ×2 (16:45→22:50)
[2016-10-15] MEDS ORDERED: INSULIN GLARGINE,HUM.REC.ANLOG 300 UNIT/3 ML INSULN.PEN SUBCUT SCH (22:00)
[2016-10-15] MEDS: ATORVASTATIN CALCIUM 10 MG TABLET PO SCH (22:51)
[2016-10-15] MEDS: TAMSULOSIN HCL 0.4 MG CAP.SR.24H PO SCH (22:51)
[2016-10-16] MEDS: HYDRALAZINE HCL 50 MG TABLET PO SCH (05:52)
[2016-10-16 07:50] LABS: ABSOLUTE EOSINOPHILS # (AUTO) 0.2 10^3/uL (0.0-0.6); ABSOLUTE MONOCYTES (AUTO) 0.6 10^3/uL (0.1-1.4); ABSOLUTE NEUT (AUTO) 4.8 10^3/uL (1.7-8.2); BASOPHILS % (AUTO) 0.3 % (0-2); EOSINOPHILS % (AUTO) 2.6 % (0-6); HEMATOCRIT 40.8 % (37.9-51.0); HGB HCT DIFFERENCE 1.2; LYMPHOCYTES % (AUTO) 26.2 % (13-45); MEAN CORPUSCULAR HEMOGLOBIN 28.5 pg (27.0-33.4); MEAN CORPUSCULAR HGB CONC 34.3 g/dL (32.0-36.0); MEAN CORPUSCULAR VOLUME 83 fl (80-97); MONOCYTES % (AUTO) 8.1 % (3-13); RED CELL DISTRIBUTION WIDTH 14.6 % (11.5-14.0); SEGMENTED NEUTROPHILS % (AUTO) 62.8 % (42-78); WHITE BLOOD COUNT 7.7 10^3/uL (4.0-10.5)
[2016-10-16 08:09] LABS: ANION GAP 12 (5-19); BLOOD UREA NITROGEN 20 mg/dL (7-20); CALCIUM 9.2 mg/dL (8.4-10.2); CARBON DIOXIDE 22 mmol/L (22-30); CHLORIDE 105 mmol/L (98-107); CREATININE RESULT 0.76 mg/dL (0.52-1.25); GLUCOSE 165 mg/dL (75-110); POTASSIUM 3.8 mmol/L (3.6-5.0); SODIUM 139.1 mmol/L (137-145)
[2016-10-16] MEDS: SERTRALINE HCL 50 MG TABLET PO SCH (10:09)
[2016-10-16] MEDS: LISINOPRIL 5 MG TABLET PO SCH (10:09)
[2016-10-16] MEDS: CEFTRIAXONE 1 GM/D5W RTU 50 ML IV SCH (10:10)
[2016-10-16] MEDS: FOLIC ACID 1 MG TABLET PO SCH (10:10)
[2016-10-16] MEDS: DILTIAZEM HCL 180 MG CAPSULE.CR PO SCH ×2 (10:10→22:36)
[2016-10-16] MEDS: APIXABAN 2.5 MG TABLET PO SCH ×2 (10:11→17:37)
[2016-10-16] MEDS: DOCUSATE SODIUM 100 MG CAPSULE PO SCH ×2 (10:22→17:50)
[2016-10-16] MEDS: INSULIN LISPRO 100 UNIT/ML 3 ML VIAL SUBCUT PRN ×3 (12:24→22:38)
[2016-10-16] MEDS ORDERED: FLUCONAZOLE 100 MG TABLET PO ONE (15:00)
--- NOTE | 2016-10-16 15:25 | PDOC PROGRESS REPORT ---
Subjective Progress Note for:: 10/16/16 Subjective:: Patient feels better than when he arrived. His speech is better, but he still seems to have difficulty speaking, and particular word finding and talking very softly. His affect is unusual. Patient denies fever, chills, headache, new focal weakness, chest pain, shortness of breath, abdominal pain, nausea, vomiting, diarrhea, constipation. Physical Exam Vital Signs: Temp Pulse Resp BP Pulse Ox 97.3 F 91 16 101/78 95 10/16/16 11:46 10/16/16 12:34 10/16/16 12:34 10/16/16 11:46 10/16/16 11:46 Intake & Output 10/15/16 10/16/16 10/17/16 06:59 06:59 06:59 Intake Total 780 360 Output Total 400 100 Balance 380 260 Weight 93.4 kg GENERAL: No acute distress HEENT: Conjunctiva clear, nonicteric, moist mucous membranes, no JVD, midline trachea RESPIRATORY: Clear to auscultation bilaterally, no wheezes, no rhonchi CARDIAC: Regular rate and rhythm, no murmurs/gallops/rubs ABDOMEN: Soft, nondistended, nontender, positive bowel sounds, no rebound, no guarding EXTREMETIES: No edema, left BKA NEUROLOGIC: Alert, expressive aphasia, oriented to person/place/time, CN's grossly intact, no focal deficits SKIN: No rash, wounds PSYCH: Unusual affect Results Laboratory Results: 10/16/16 06:40 10/16/16 06:40 10/16/16 10/16/16 06:40 06:40 WBC 7.7 RBC 4.90 Hgb 14.0 Hct 40.8 MCV 83 MCH 28.5 MCHC 34.3 RDW 14.6 H Plt Count 138 L Seg Neutrophils % 62.8 Lymphocytes % 26.2 Monocytes % 8.1 Eosinophils % 2.6 Basophils % 0.3 Absolute Neutrophils 4.8 Absolute Lymphocytes 2.0 Absolute Monocytes 0.6 Absolute Eosinophils 0.2 Absolute Basophils 0.0 Sodium 139.1 Potassium 3.8 Chloride 105 Carbon Dioxide 22 Anion Gap 12 BUN 20 Creatinine 0.76 Est GFR ( Amer) > 60 Est GFR (Non-Af Amer) > 60 Glucose 165 H Calcium 9.2 10/15/16 05:05 Nasophary (Mrsa Only) MRSA Surveillance Culture - Final NO MRSA RECOVERED 10/15/16 06:18 Troponin I 0.023 Impressions: Chest X-Ray 10/14/16 18:08 IMPRESSION: NO ACUTE RADIOGRAPHIC FINDING IN THE CHEST. Head CT 10/15/16 00:00 IMPRESSION: CHRONIC CHANGES OF ATROPHY AND MICROVASCULAR ISCHEMIA. NO ACUTE PROCESS. Carotid Doppler Study 10/15/16 08:04 IMPRESSION: Less than 50% diameter stenosis of the right and left proximal internal carotid arteries at the carotid bifurcations. Head MRI 10/15/16 08:05 IMPRESSION: Extensive white matter disease from chronic small vessel ischemic change Single punctate focus of acute nonhemorrhagic ischemic change left posterior frontal subcortical white matter on diffusion imaging Assessment & Plan - Diagnosis (1) Acute CVA (cerebrovascular accident) Is this a current diagnosis for this admission?: YesPlan: Small acute left frontal ischemic stroke noted on MRI of brain. Continue Eliquis secondary to atrial fibrillation. Continue Lipitor. Physical therapy/ speech therapy/occupational therapy evaluation. Patient was living alone and I think he is going to need to go to rehabilitation facility after discharge. (2) Acute encephalopathy Is this a current diagnosis for this admission?: YesPlan: Likely secondary to urinary tract infection and acute stroke. Continue supportive care. (3) Atrial fibrillation with RVR Is this a current diagnosis for this admission?: YesPlan: Heart rate stable at this time. Continue Cardizem CD 180 mg twice daily. Continue Eliquis. (4) UTI (urinary tract infection) Qualifiers: Urinary tract infection type: site unspecified Is this a current diagnosis for this admission?: YesPlan: Urine culture with elena. D/c Rocephin. Diflucan 100mg po daily until 10/23/16. (5) Status post below knee amputation of left lower extremity Is this a current diagnosis for this admission?: YesPlan: Patient has prosthetic. (6) Diabetes mellitus, type II Qualifiers: Diabetes mellitus complication status: with circulatory complication Diabetes mellitus care home insulin use: unspecified termite control representative insulin use status Is this a current diagnosis for this admission?: YesPlan: Increase Lantus to 15 units nightly. Sliding scale insulin. (7) Hyperlipidemia Qualifiers: Hyperlipidemia type: unspecified Qualified Code(s): E78.5 - Hyperlipidemia, unspecified Is this a current diagnosis for this admission?: Yes (8) Hypertension Qualifiers: Hypertension type: essential hypertension Qualified Code(s): I10 - Essential (primary) hypertension Is this a current diagnosis for this admission?: YesPlan: Resume home medications which include Cardizem, lisinopril. Discontinue scheduled hydralazine. When necessary IV hydralazine. (9) BPH (benign prostatic hyperplasia) Is this a current diagnosis for this admission?: YesPlan: Flomax. - Time Time Spent with patient: 35 or more minutes Anticipated discharge: Acute Rehab Within: within 72 hours
[2016-10-16] MEDS: TAMSULOSIN HCL 0.4 MG CAP.SR.24H PO SCH (22:36)
[2016-10-16] MEDS: ATORVASTATIN CALCIUM 10 MG TABLET PO SCH (22:36)
[2016-10-16] MEDS: INSULIN GLARGINE,HUM.REC.ANLOG 300 UNIT/3 ML INSULN.PEN SUBCUT SCH (22:37)
[2016-10-17] MEDS: INSULIN LISPRO 100 UNIT/ML 3 ML VIAL SUBCUT PRN ×4 (08:00→22:25)
[2016-10-17] MEDS: SERTRALINE HCL 50 MG TABLET PO SCH (09:39)
[2016-10-17] MEDS: FOLIC ACID 1 MG TABLET PO SCH (09:40)
[2016-10-17] MEDS: APIXABAN 2.5 MG TABLET PO SCH ×2 (09:40→17:03)
[2016-10-17] MEDS: FLUCONAZOLE 100 MG TABLET PO SCH (09:40)
[2016-10-17] MEDS: DOCUSATE SODIUM 100 MG CAPSULE PO SCH ×2 (09:40→17:05)
[2016-10-17] MEDS: DILTIAZEM HCL 180 MG CAPSULE.CR PO SCH ×2 (09:43→22:25)
[2016-10-17] MEDS: LISINOPRIL 5 MG TABLET PO SCH (09:43)
--- NOTE | 2016-10-17 17:35 | PDOC PROGRESS REPORT ---
Subjective Progress Note for:: 10/17/16 Subjective:: Patient is very confused today. 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 When asked what is talking about he states that he is taking a trip and is making airline respirations but trip today. Patient denies fever, chills, headache, new focal weakness, chest pain, shortness of breath, abdominal pain, nausea, vomiting, diarrhea, constipation. Physical Exam Vital Signs: Temp Pulse Resp BP Pulse Ox 98.2 F 104 H 16 125/78 99 10/17/16 15:04 10/17/16 15:04 10/17/16 15:04 10/17/16 15:04 10/17/16 15:04 Intake & Output 10/16/16 10/17/16 10/18/16 06:59 06:59 06:59 Intake Total 780 1170 10 Output Total 400 575 Balance 380 595 10 Weight 93.4 kg 100.7 kg GENERAL: No acute distress, confused HEENT: Conjunctiva clear, nonicteric, moist mucous membranes, no JVD, midline trachea RESPIRATORY: Clear to auscultation bilaterally, no wheezes, no rhonchi CARDIAC: Regular rate and rhythm, no murmurs/gallops/rubs ABDOMEN: Soft, nondistended, nontender, positive bowel sounds, no rebound, no guarding EXTREMETIES: No edema. Left below knee amputation NEUROLOGIC: Alert, oriented to person only, CN's grossly intact, no focal deficits SKIN: No rash, wounds PSYCH: Unusual affect Results Laboratory Results: 10/16/16 06:40 10/16/16 06:40 10/15/16 06:18 Troponin I 0.023 Impressions: Chest X-Ray 10/14/16 18:08 IMPRESSION: NO ACUTE RADIOGRAPHIC FINDING IN THE CHEST. Head CT 10/15/16 00:00 IMPRESSION: CHRONIC CHANGES OF ATROPHY AND MICROVASCULAR ISCHEMIA. NO ACUTE PROCESS. Carotid Doppler Study 10/15/16 08:04 IMPRESSION: Less than 50% diameter stenosis of the right and left proximal internal carotid arteries at the carotid bifurcations. Head MRI 10/15/16 08:05 IMPRESSION: Extensive white matter disease from chronic small vessel ischemic change Single punctate focus of acute nonhemorrhagic ischemic change left posterior frontal subcortical white matter on diffusion imaging Assessment & Plan - Diagnosis (1) Acute CVA (cerebrovascular accident) Is this a current diagnosis for this admission?: YesPlan: Small acute left frontal ischemic stroke noted on MRI of brain. Continue Eliquis secondary to atrial fibrillation. Continue Lipitor. Physical therapy/ speech therapy/occupational therapy evaluation. Patient was living alone and I think he is going to need to go to rehabilitation facility after discharge. (2) Acute encephalopathy Is this a current diagnosis for this admission?: YesPlan: Likely secondary to urinary tract infection and acute stroke. Continue supportive care. Patient is more confused today. I will start him on thiamine. Check vitamin B 12. (3) Atrial fibrillation with RVR Is this a current diagnosis for this admission?: YesPlan: Heart rate stable at this time. Continue Cardizem CD 180 mg twice daily. Continue Eliquis. (4) UTI (urinary tract infection) Qualifiers: Urinary tract infection type: site unspecified Is this a current diagnosis for this admission?: YesPlan: Urine culture with elena. Diflucan 100mg po daily until 10/23/16. (5) Status post below knee amputation of left lower extremity Is this a current diagnosis for this admission?: YesPlan: Patient has prosthetic. (6) Diabetes mellitus, type II Qualifiers: Diabetes mellitus complication status: with circulatory complication Diabetes mellitus skilled nursing insulin use: unspecified skilled nursing insulin use status Is this a current diagnosis for this admission?: YesPlan: Lantus 15 units nightly. Sliding scale insulin. (7) Hyperlipidemia Qualifiers: Hyperlipidemia type: unspecified Qualified Code(s): E78.5 - Hyperlipidemia, unspecified Is this a current diagnosis for this admission?: YesPlan: Continue Lipitor. (8) Hypertension Qualifiers: Hypertension type: essential hypertension Qualified Code(s): I10 - Essential (primary) hypertension Is this a current diagnosis for this admission?: YesPlan: Continue Cardizem, lisinopril. Discontinued scheduled hydralazine secondary to low blood pressures. When necessary IV hydralazine. (9) BPH (benign prostatic hyperplasia) Is this a current diagnosis for this admission?: YesPlan: Flomax. - Time Time Spent with patient: 35 or more minutes
[2016-10-17] MEDS: TAMSULOSIN HCL 0.4 MG CAP.SR.24H PO SCH (22:24)
[2016-10-17] MEDS: INSULIN GLARGINE,HUM.REC.ANLOG 300 UNIT/3 ML INSULN.PEN SUBCUT SCH (22:25)
[2016-10-17] MEDS: ATORVASTATIN CALCIUM 10 MG TABLET PO SCH (22:25)
[2016-10-18 04:21] LABS: ABSOLUTE EOSINOPHILS # (AUTO) 0.2 10^3/uL (0.0-0.6); ABSOLUTE LYMPHOCYTES (AUTO) 1.9 10^3/uL (0.5-4.7); ABSOLUTE MONOCYTES (AUTO) 0.6 10^3/uL (0.1-1.4); ABSOLUTE NEUT (AUTO) 4.2 10^3/uL (1.7-8.2); BASOPHILS % (AUTO) 0.4 % (0-2); EOSINOPHILS % (AUTO) 3.3 % (0-6); HEMATOCRIT 37.3 % (37.9-51.0); HEMOGLOBIN 12.8 g/dL (13.5-17.0); HGB HCT DIFFERENCE 1.1; LYMPHOCYTES % (AUTO) 27.6 % (13-45); MEAN CORPUSCULAR HEMOGLOBIN 28.4 pg (27.0-33.4); MEAN CORPUSCULAR HGB CONC 34.4 g/dL (32.0-36.0); MEAN CORPUSCULAR VOLUME 82 fl (80-97); MONOCYTES % (AUTO) 8.5 % (3-13); RED BLOOD COUNT 4.52 10^6/uL (4.35-5.55); RED CELL DISTRIBUTION WIDTH 14.2 % (11.5-14.0); SEGMENTED NEUTROPHILS % (AUTO) 60.2 % (42-78); WHITE BLOOD COUNT 6.9 10^3/uL (4.0-10.5)
[2016-10-18 04:46] LABS: ANION GAP 10 (5-19); BLOOD UREA NITROGEN 19 mg/dL (7-20); CARBON DIOXIDE 23 mmol/L (22-30); CHLORIDE 105 mmol/L (98-107); GLUCOSE 165 mg/dL (75-110); POTASSIUM 3.6 mmol/L (3.6-5.0)
[2016-10-18] MEDS: FLUCONAZOLE 100 MG TABLET PO SCH (09:53)
[2016-10-18] MEDS: THIAMINE HCL 100 MG TABLET PO SCH (09:53)
[2016-10-18] MEDS: FOLIC ACID 1 MG TABLET PO SCH (09:53)
[2016-10-18] MEDS: LISINOPRIL 5 MG TABLET PO SCH (09:54)
[2016-10-18] MEDS: DOCUSATE SODIUM 100 MG CAPSULE PO SCH ×2 (09:54→17:30)
[2016-10-18] MEDS: SERTRALINE HCL 50 MG TABLET PO SCH (09:54)
[2016-10-18] MEDS: DILTIAZEM HCL 180 MG CAPSULE.CR PO SCH ×2 (09:54→23:11)
[2016-10-18] MEDS: APIXABAN 2.5 MG TABLET PO SCH ×2 (09:54→17:31)
--- NOTE | 2016-10-18 18:24 | PDOC PROGRESS REPORT ---
Subjective Progress Note for:: 10/18/16 Subjective:: Patient continues to be confused today. Patient denies fever, chills, headache , new focal weakness, chest pain, shortness of breath, abdominal pain, nausea, vomiting, diarrhea, constipation. Physical Exam Vital Signs: Temp Pulse Resp BP Pulse Ox 97.6 F 64 16 121/67 98 10/18/16 15:57 10/18/16 15:57 10/18/16 15:57 10/18/16 15:57 10/18/16 15:57 Intake & Output 10/17/16 10/18/16 10/19/16 06:59 06:59 06:59 Intake Total 1170 770 100 Output Total 575 600 Balance 595 170 100 Weight 100.7 kg 100.5 kg GENERAL: No acute distress, confused HEENT: Conjunctiva clear, nonicteric, moist mucous membranes, no JVD, midline trachea RESPIRATORY: Clear to auscultation bilaterally, no wheezes, no rhonchi CARDIAC: Regular rate and rhythm, no murmurs/gallops/rubs ABDOMEN: Soft, nondistended, nontender, positive bowel sounds, no rebound, no guarding EXTREMETIES: No edema. Left below knee amputation NEUROLOGIC: Alert, oriented to person only, CN's grossly intact, no focal deficits SKIN: No rash, wounds PSYCH: Unusual affect Results Laboratory Results: 10/18/16 03:53 10/18/16 03:53 10/18/16 10/18/16 03:53 03:53 WBC 6.9 RBC 4.52 Hgb 12.8 L Hct 37.3 L MCV 82 MCH 28.4 MCHC 34.4 RDW 14.2 H Plt Count 143 L Seg Neutrophils % 60.2 Lymphocytes % 27.6 Monocytes % 8.5 Eosinophils % 3.3 Basophils % 0.4 Absolute Neutrophils 4.2 Absolute Lymphocytes 1.9 Absolute Monocytes 0.6 Absolute Eosinophils 0.2 Absolute Basophils 0.0 Sodium 138.0 Potassium 3.6 Chloride 105 Carbon Dioxide 23 Anion Gap 10 BUN 19 Creatinine 0.80 Est GFR ( Amer) > 60 Est GFR (Non-Af Amer) > 60 Glucose 165 H Calcium 9.0 Vitamin B12 688.0 10/15/16 06:18 Troponin I 0.023 Impressions: Chest X-Ray 10/14/16 18:08 IMPRESSION: NO ACUTE RADIOGRAPHIC FINDING IN THE CHEST. Head CT 10/15/16 00:00 IMPRESSION: CHRONIC CHANGES OF ATROPHY AND MICROVASCULAR ISCHEMIA. NO ACUTE PROCESS. Carotid Doppler Study 10/15/16 08:04 IMPRESSION: Less than 50% diameter stenosis of the right and left proximal internal carotid arteries at the carotid bifurcations. Head MRI 10/15/16 08:05 IMPRESSION: Extensive white matter disease from chronic small vessel ischemic change Single punctate focus of acute nonhemorrhagic ischemic change left posterior frontal subcortical white matter on diffusion imaging Assessment & Plan - Diagnosis (1) Acute CVA (cerebrovascular accident) Is this a current diagnosis for this admission?: YesPlan: Small acute left frontal ischemic stroke noted on MRI of brain. Continue Eliquis secondary to atrial fibrillation. Continue Lipitor. Physical therapy/ speech therapy/occupational therapy evaluation. Patient was living alone and I think he is going to need to go to rehabilitation facility after discharge. (2) Acute encephalopathy Is this a current diagnosis for this admission?: YesPlan: Likely secondary to urinary tract infection and acute stroke. Continue supportive care. Patient is more confused today. I will start him on thiamine. B-12 level normal. (3) Atrial fibrillation with RVR Is this a current diagnosis for this admission?: YesPlan: Heart rate stable at this time. Continue Cardizem CD 180 mg twice daily. Continue Eliquis. (4) UTI (urinary tract infection) Qualifiers: Urinary tract infection type: site unspecified Is this a current diagnosis for this admission?: YesPlan: Urine culture with elena. Diflucan 100mg po daily until 10/23/16. (5) Status post below knee amputation of left lower extremity Is this a current diagnosis for this admission?: YesPlan: Patient does not have prosthetic. 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 Sliding scale insulin. (7) Hyperlipidemia Qualifiers: Hyperlipidemia type: unspecified Qualified Code(s): E78.5 - Hyperlipidemia, unspecified Is this a current diagnosis for this admission?: YesPlan: Continue Lipitor. (8) Hypertension Qualifiers: Hypertension type: essential hypertension Qualified Code(s): I10 - Essential (primary) hypertension Is this a current diagnosis for this admission?: YesPlan: Continue Cardizem, lisinopril. Discontinued scheduled hydralazine secondary to low blood pressures. When necessary IV hydralazine. (9) BPH (benign prostatic hyperplasia) Is this a current diagnosis for this admission?: Yes - Time Time Spent with patient: 25-34 minutes
[2016-10-18] MEDS: ATORVASTATIN CALCIUM 10 MG TABLET PO SCH (23:11)
[2016-10-18] MEDS: TAMSULOSIN HCL 0.4 MG CAP.SR.24H PO SCH (23:11)
[2016-10-18] MEDS: INSULIN LISPRO 100 UNIT/ML 3 ML VIAL SUBCUT PRN (23:12)
[2016-10-18] MEDS: INSULIN GLARGINE,HUM.REC.ANLOG 300 UNIT/3 ML INSULN.PEN SUBCUT SCH (23:12)
[2016-10-19] MEDS: FLUCONAZOLE 100 MG TABLET PO SCH (09:58)
[2016-10-19] MEDS: LISINOPRIL 5 MG TABLET PO SCH (09:59)
[2016-10-19] MEDS: DOCUSATE SODIUM 100 MG CAPSULE PO SCH ×2 (09:59→17:22)
[2016-10-19] MEDS: THIAMINE HCL 100 MG TABLET PO SCH (09:59)
[2016-10-19] MEDS: FOLIC ACID 1 MG TABLET PO SCH (09:59)
[2016-10-19] MEDS: DILTIAZEM HCL 180 MG CAPSULE.CR PO SCH ×2 (09:59→21:42)
[2016-10-19] MEDS: SERTRALINE HCL 50 MG TABLET PO SCH (09:59)
[2016-10-19] MEDS: APIXABAN 2.5 MG TABLET PO SCH ×2 (10:00→17:22)
--- NOTE | 2016-10-19 12:23 | PDOC PROGRESS REPORT ---
Subjective Progress Note for:: 10/19/16 Subjective:: Patient is slightly confused today but denies any complaints. Physical Exam Vital Signs: Temp Pulse Resp BP Pulse Ox 98.3 F 79 18 134/77 H 99 10/19/16 07:30 10/19/16 07:30 10/19/16 07:30 10/19/16 07:30 10/19/16 07:30 Intake & Output 10/18/16 10/19/16 10/20/16 06:59 06:59 06:59 Intake Total 770 820 Output Total 600 1075 Balance 170 -255 Weight 100.5 kg 100.2 kg General appearance: PRESENT: no acute distress Eye exam: PRESENT: conjunctiva pink. ABSENT: scleral icterus Mouth exam: PRESENT: moist, tongue midline Neck exam: ABSENT: JVD Respiratory exam: PRESENT: clear to auscultation adilia. ABSENT: rales, rhonchi, wheezes Cardiovascular exam: PRESENT: RRR. ABSENT: diastolic murmur, rubs, systolic murmur GI/Abdominal exam: PRESENT: normal bowel sounds, soft. ABSENT: distended, guarding, mass, organolmegaly, rebound, tenderness Extremities exam: ABSENT: calf tenderness, clubbing, pedal edema Neurological exam: PRESENT: awake, oriented to person, oriented to place, CN II- XII grossly intact. ABSENT: oriented to time, oriented to situation, motor sensory deficit Psychiatric exam: PRESENT: flat affect Skin exam: PRESENT: dry, intact, warm. ABSENT: cyanosis, rash Results Laboratory Results: 10/18/16 03:53 10/18/16 03:53 10/15/16 06:18 Troponin I 0.023 Impressions: Chest X-Ray 10/14/16 18:08 IMPRESSION: NO ACUTE RADIOGRAPHIC FINDING IN THE CHEST. Head CT 10/15/16 00:00 IMPRESSION: CHRONIC CHANGES OF ATROPHY AND MICROVASCULAR ISCHEMIA. NO ACUTE PROCESS. Carotid Doppler Study 10/15/16 08:04 IMPRESSION: Less than 50% diameter stenosis of the right and left proximal internal carotid arteries at the carotid bifurcations. Head MRI 10/15/16 08:05 IMPRESSION: Extensive white matter disease from chronic small vessel ischemic change Single punctate focus of acute nonhemorrhagic ischemic change left posterior frontal subcortical white matter on diffusion imaging Assessment & Plan - Diagnosis (1) Acute CVA (cerebrovascular accident) Is this a current diagnosis for this admission?: YesPlan: The patient is on Eliquis because of his history of atrial fibrillation. (2) Acute encephalopathy Is this a current diagnosis for this admission?: YesPlan: Secondary to acute CVA and urinary tract infection. This is improving. (3) Atrial fibrillation with RVR Is this a current diagnosis for this admission?: YesPlan: Patient is rate controlled and is on Eliquis. (4) BPH (benign prostatic hyperplasia) Is this a current diagnosis for this admission?: YesPlan: Asymptomatic (5) UTI (urinary tract infection) Qualifiers: Urinary tract infection type: site unspecified Is this a current diagnosis for this admission?: YesPlan: Patient is growing [place] from his urine and is on Diflucan. 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 (8) Hyperlipidemia Qualifiers: Hyperlipidemia type: unspecified Qualified Code(s): E78.5 - Hyperlipidemia, unspecified Is this a current diagnosis for this admission?: YesPlan: Continue with Lipitor. (9) Hypertension Qualifiers: Hypertension type: essential hypertension Qualified Code(s): I10 - Essential (primary) hypertension Is this a current diagnosis for this admission?: YesPlan: Continue with diltiazem and lisinopril. - Time Time Spent with patient: 25-34 minutes - Inpatient Certification Medical Necessity: Need Close Monitoring Due to Risk of Patient Decompensation
[2016-10-19] MEDS: INSULIN LISPRO 100 UNIT/ML 3 ML VIAL SUBCUT PRN ×2 (17:20→22:02)
[2016-10-19] MEDS: ATORVASTATIN CALCIUM 10 MG TABLET PO SCH (21:42)
[2016-10-19] MEDS: TAMSULOSIN HCL 0.4 MG CAP.SR.24H PO SCH (21:43)
[2016-10-19] MEDS: INSULIN GLARGINE,HUM.REC.ANLOG 300 UNIT/3 ML INSULN.PEN SUBCUT SCH (21:56)
[2016-10-20 04:32] LABS: ABSOLUTE EOSINOPHILS # (AUTO) 0.3 10^3/uL (0.0-0.6); ABSOLUTE LYMPHOCYTES (AUTO) 1.9 10^3/uL (0.5-4.7); ABSOLUTE MONOCYTES (AUTO) 0.7 10^3/uL (0.1-1.4); ABSOLUTE NEUT (AUTO) 4.5 10^3/uL (1.7-8.2); BASOPHILS % (AUTO) 0.2 % (0-2); EOSINOPHILS % (AUTO) 3.9 % (0-6); HEMATOCRIT 36.2 % (37.9-51.0); HEMOGLOBIN 12.3 g/dL (13.5-17.0); HGB HCT DIFFERENCE 0.7; LYMPHOCYTES % (AUTO) 25.7 % (13-45); MEAN CORPUSCULAR HEMOGLOBIN 28.3 pg (27.0-33.4); MEAN CORPUSCULAR HGB CONC 34.1 g/dL (32.0-36.0); MEAN CORPUSCULAR VOLUME 83 fl (80-97); MONOCYTES % (AUTO) 9.5 % (3-13); RED BLOOD COUNT 4.37 10^6/uL (4.35-5.55); SEGMENTED NEUTROPHILS % (AUTO) 60.7 % (42-78); WHITE BLOOD COUNT 7.3 10^3/uL (4.0-10.5)
[2016-10-20 04:53] LABS: ANION GAP 11 (5-19); BLOOD UREA NITROGEN 16 mg/dL (7-20); CALCIUM 8.9 mg/dL (8.4-10.2); CARBON DIOXIDE 25 mmol/L (22-30); CHLORIDE 103 mmol/L (98-107); CREATININE RESULT 0.73 mg/dL (0.52-1.25); GLUCOSE 155 mg/dL (75-110); POTASSIUM 3.9 mmol/L (3.6-5.0); SODIUM 138.8 mmol/L (137-145)
--- NOTE | 2016-10-20 10:26 | PDOC PROGRESS REPORT ---
Subjective Progress Note for:: 10/20/16 Subjective:: Patient is still slightly confused but denies any complaints. Physical Exam Vital Signs: Temp Pulse Resp BP Pulse Ox 97.6 F 90 12 137/86 H 100 10/20/16 08:28 10/20/16 08:28 10/20/16 08:28 10/20/16 08:28 10/20/16 08:28 Intake & Output 10/19/16 10/20/16 10/21/16 06:59 06:59 06:59 Intake Total 820 1244 Output Total 1075 825 Balance -255 419 Weight 100.2 kg 99.7 kg General appearance: PRESENT: no acute distress Eye exam: PRESENT: conjunctiva pink. ABSENT: scleral icterus Mouth exam: PRESENT: moist, tongue midline Neck exam: ABSENT: JVD Respiratory exam: PRESENT: clear to auscultation adilia. ABSENT: rales, rhonchi, wheezes Cardiovascular exam: PRESENT: RRR. ABSENT: diastolic murmur, rubs, systolic murmur GI/Abdominal exam: PRESENT: normal bowel sounds, soft. ABSENT: distended, guarding, mass, organolmegaly, rebound, tenderness Extremities exam: ABSENT: calf tenderness, clubbing, pedal edema Neurological exam: PRESENT: alert, awake, oriented to person, oriented to place , CN II-XII grossly intact. ABSENT: oriented to time, oriented to situation, motor sensory deficit Psychiatric exam: PRESENT: flat affect Skin exam: PRESENT: dry, intact, warm. ABSENT: cyanosis, rash Results Laboratory Results: 10/20/16 03:55 10/20/16 03:55 10/20/16 10/20/16 03:55 03:55 WBC 7.3 RBC 4.37 Hgb 12.3 L Hct 36.2 L MCV 83 MCH 28.3 MCHC 34.1 RDW 14.0 Plt Count 165 Seg Neutrophils % 60.7 Lymphocytes % 25.7 Monocytes % 9.5 Eosinophils % 3.9 Basophils % 0.2 Absolute Neutrophils 4.5 Absolute Lymphocytes 1.9 Absolute Monocytes 0.7 Absolute Eosinophils 0.3 Absolute Basophils 0.0 Sodium 138.8 Potassium 3.9 Chloride 103 Carbon Dioxide 25 Anion Gap 11 BUN 16 Creatinine 0.73 Est GFR ( Amer) > 60 Est GFR (Non-Af Amer) > 60 Glucose 155 H Calcium 8.9 10/15/16 06:18 Troponin I 0.023 Impressions: Chest X-Ray 10/14/16 18:08 IMPRESSION: NO ACUTE RADIOGRAPHIC FINDING IN THE CHEST. Head CT 10/15/16 00:00 IMPRESSION: CHRONIC CHANGES OF ATROPHY AND MICROVASCULAR ISCHEMIA. NO ACUTE PROCESS. Carotid Doppler Study 10/15/16 08:04 IMPRESSION: Less than 50% diameter stenosis of the right and left proximal internal carotid arteries at the carotid bifurcations. Head MRI 10/15/16 08:05 IMPRESSION: Extensive white matter disease from chronic small vessel ischemic change Single punctate focus of acute nonhemorrhagic ischemic change left posterior frontal subcortical white matter on diffusion imaging Assessment & Plan - Diagnosis (1) Acute CVA (cerebrovascular accident) Is this a current diagnosis for this admission?: YesPlan: The patient is on Eliquis because of his history of atrial fibrillation. (2) Acute encephalopathy Is this a current diagnosis for this admission?: YesPlan: Secondary to acute CVA and urinary tract infection. Continues to improve. (3) Atrial fibrillation with RVR Is this a current diagnosis for this admission?: YesPlan: Patient is rate controlled and is on Eliquis. (4) BPH (benign prostatic hyperplasia) Is this a current diagnosis for this admission?: YesPlan: Asymptomatic (5) UTI (urinary tract infection) Qualifiers: Urinary tract infection type: site unspecified Is this a current diagnosis for this admission?: YesPlan: Patient is growing [place] from his urine and is on Diflucan. 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 (8) Hyperlipidemia Qualifiers: Hyperlipidemia type: unspecified Qualified Code(s): E78.5 - Hyperlipidemia, unspecified Is this a current diagnosis for this admission?: YesPlan: Continue with Lipitor. (9) Hypertension Qualifiers: Hypertension type: essential hypertension Qualified Code(s): I10 - Essential (primary) hypertension Is this a current diagnosis for this admission?: YesPlan: Continue with diltiazem and lisinopril. - Time Time Spent with patient: 25-34 minutes - Inpatient Certification Medical Necessity: Need Close Monitoring Due to Risk of Patient Decompensation - Plan Summary Plan Summary: Should be able to go to rehabilitation on Saturday.
[2016-10-20] MEDS: FLUCONAZOLE 100 MG TABLET PO SCH (10:51)
[2016-10-20] MEDS: DILTIAZEM HCL 180 MG CAPSULE.CR PO SCH ×2 (10:51→23:25)
[2016-10-20] MEDS: SERTRALINE HCL 50 MG TABLET PO SCH (10:51)
[2016-10-20] MEDS: FOLIC ACID 1 MG TABLET PO SCH (10:51)
[2016-10-20] MEDS: LISINOPRIL 5 MG TABLET PO SCH (10:51)
[2016-10-20] MEDS: DOCUSATE SODIUM 100 MG CAPSULE PO SCH ×2 (10:52→17:09)
[2016-10-20] MEDS: APIXABAN 2.5 MG TABLET PO SCH ×2 (10:52→17:09)
[2016-10-20] MEDS: THIAMINE HCL 100 MG TABLET PO SCH (10:52)
[2016-10-20] MEDS: INSULIN LISPRO 100 UNIT/ML 3 ML VIAL SUBCUT PRN (23:26)
[2016-10-20] MEDS: TAMSULOSIN HCL 0.4 MG CAP.SR.24H PO SCH (23:26)
[2016-10-20] MEDS: ATORVASTATIN CALCIUM 10 MG TABLET PO SCH (23:26)
[2016-10-20] MEDS: INSULIN GLARGINE,HUM.REC.ANLOG 300 UNIT/3 ML INSULN.PEN SUBCUT SCH (23:26)
--- NOTE | 2016-10-21 10:32 | PDOC PROGRESS REPORT ---
Subjective Progress Note for:: 10/21/16 Subjective:: Patient is slightly confused but denies any complaints. Physical Exam Vital Signs: Temp Pulse Resp BP Pulse Ox 97.7 F 69 16 144/83 H 99 10/21/16 07:35 10/21/16 07:35 10/21/16 07:35 10/21/16 07:35 10/21/16 07:35 Intake & Output 10/20/16 10/21/16 10/22/16 06:59 06:59 06:59 Intake Total 1244 412 Output Total 825 800 Balance 419 -388 Weight 99.7 kg 102.5 kg General appearance: PRESENT: no acute distress Eye exam: PRESENT: conjunctiva pink. ABSENT: scleral icterus Mouth exam: PRESENT: moist, tongue midline Neck exam: ABSENT: JVD Respiratory exam: PRESENT: clear to auscultation adilia. ABSENT: rales, rhonchi, wheezes Cardiovascular exam: PRESENT: irregular rhythm. ABSENT: diastolic murmur, rubs , systolic murmur GI/Abdominal exam: PRESENT: normal bowel sounds, soft. ABSENT: distended, guarding, mass, organolmegaly, rebound, tenderness Extremities exam: ABSENT: calf tenderness, clubbing, pedal edema Neurological exam: PRESENT: awake, oriented to person, oriented to place. ABSENT: oriented to time, oriented to situation Psychiatric exam: PRESENT: flat affect Skin exam: PRESENT: dry, intact, warm. ABSENT: cyanosis, rash Results Laboratory Results: 10/20/16 03:55 10/20/16 03:55 10/15/16 06:18 Troponin I 0.023 Impressions: Chest X-Ray 10/14/16 18:08 IMPRESSION: NO ACUTE RADIOGRAPHIC FINDING IN THE CHEST. Head CT 10/15/16 00:00 IMPRESSION: CHRONIC CHANGES OF ATROPHY AND MICROVASCULAR ISCHEMIA. NO ACUTE PROCESS. Carotid Doppler Study 10/15/16 08:04 IMPRESSION: Less than 50% diameter stenosis of the right and left proximal internal carotid arteries at the carotid bifurcations. Head MRI 10/15/16 08:05 IMPRESSION: Extensive white matter disease from chronic small vessel ischemic change Single punctate focus of acute nonhemorrhagic ischemic change left posterior frontal subcortical white matter on diffusion imaging Assessment & Plan - Diagnosis (1) Acute CVA (cerebrovascular accident) Is this a current diagnosis for this admission?: YesPlan: The patient is on Eliquis because of his history of atrial fibrillation. The patient is weak and will need rehabilitation. (2) Acute encephalopathy Is this a current diagnosis for this admission?: YesPlan: Secondary to acute CVA and urinary tract infection. The patient has had treatment of the urinary tract infection. His confusion most likely is secondary to the CVA (3) Atrial fibrillation with RVR Is this a current diagnosis for this admission?: YesPlan: Patient is rate controlled and is on Eliquis. (4) BPH (benign prostatic hyperplasia) Is this a current diagnosis for this admission?: YesPlan: Asymptomatic (5) UTI (urinary tract infection) Qualifiers: Urinary tract infection type: site unspecified Is this a current diagnosis for this admission?: YesPlan: Patient is growing [place] from his urine and is on Diflucan. 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 (8) Hyperlipidemia Qualifiers: Hyperlipidemia type: unspecified Qualified Code(s): E78.5 - Hyperlipidemia, unspecified Is this a current diagnosis for this admission?: YesPlan: Continue with Lipitor. (9) Hypertension Qualifiers: Hypertension type: essential hypertension Qualified Code(s): I10 - Essential (primary) hypertension Is this a current diagnosis for this admission?: YesPlan: Continue with diltiazem and lisinopril. - Time Time Spent with patient: 25-34 minutes - Inpatient Certification Medical Necessity: Need Close Monitoring Due to Risk of Patient Decompensation - Plan Summary Plan Summary: Patient is awaiting placement in rehabilitation.
[2016-10-21] MEDS: THIAMINE HCL 100 MG TABLET PO SCH (10:49)
[2016-10-21] MEDS: SERTRALINE HCL 50 MG TABLET PO SCH (10:49)
[2016-10-21] MEDS: FLUCONAZOLE 100 MG TABLET PO SCH (10:49)
[2016-10-21] MEDS: DOCUSATE SODIUM 100 MG CAPSULE PO SCH ×2 (10:49→17:25)
[2016-10-21] MEDS: FOLIC ACID 1 MG TABLET PO SCH (10:49)
[2016-10-21] MEDS: DILTIAZEM HCL 180 MG CAPSULE.CR PO SCH (10:49)
[2016-10-21] MEDS: POLYETHYLENE GLYCOL 3350 POWDER 17 GM/1 PACKET PO SCH (10:50)
[2016-10-21] MEDS: LISINOPRIL 5 MG TABLET PO SCH (10:50)
[2016-10-21] MEDS: APIXABAN 2.5 MG TABLET PO SCH ×2 (10:51→17:25)
[2016-10-21 11:26] LABS: APPEARANCE,URINE CLOUDY; BILIRUBIN,URINE NEGATIVE (NEGATIVE); GLUCOSE, URINE NEGATIVE (NEGATIVE); KETONES,URINE NEGATIVE (NEGATIVE); LEUKOCYTE ESTERASE,URINE LARGE (NEGATIVE); NITRITE,URINE NEGATIVE (NEGATIVE); PROTEIN,URINE 100 mg/dL (NEGATIVE); URINE SPECIFIC GRAVITY 1.015; UROBILINOGEN,URINE NEGATIVE mg/dL (<2.0)
[2016-10-21] MEDS: TAMSULOSIN HCL 0.4 MG CAP.SR.24H PO SCH (21:45)
[2016-10-21] MEDS: INSULIN GLARGINE,HUM.REC.ANLOG 300 UNIT/3 ML INSULN.PEN SUBCUT SCH (21:45)
[2016-10-21] MEDS: ATORVASTATIN CALCIUM 10 MG TABLET PO SCH (21:45)
[2016-10-21] MEDS: INSULIN LISPRO 100 UNIT/ML 3 ML VIAL SUBCUT PRN (21:45)
[2016-10-21] MEDS ORDERED: NA PHOS,M-B/NA PHOS,DI-BA (ADULT) 133 ML ENEMA PR ONE (23:00)
[2016-10-22 04:58] LABS: ABSOLUTE EOSINOPHILS # (AUTO) 0.3 10^3/uL (0.0-0.6); ABSOLUTE LYMPHOCYTES (AUTO) 1.8 10^3/uL (0.5-4.7); ABSOLUTE MONOCYTES (AUTO) 0.5 10^3/uL (0.1-1.4); ABSOLUTE NEUT (AUTO) 4.5 10^3/uL (1.7-8.2); BASOPHILS % (AUTO) 0.3 % (0-2); EOSINOPHILS % (AUTO) 3.8 % (0-6); HEMATOCRIT 35.4 % (37.9-51.0); HEMOGLOBIN 12.3 g/dL (13.5-17.0); HGB HCT DIFFERENCE 1.5; LYMPHOCYTES % (AUTO) 25.6 % (13-45); MEAN CORPUSCULAR HEMOGLOBIN 28.6 pg (27.0-33.4); MEAN CORPUSCULAR HGB CONC 34.9 g/dL (32.0-36.0); MEAN CORPUSCULAR VOLUME 82 fl (80-97); MONOCYTES % (AUTO) 7.3 % (3-13); RED BLOOD COUNT 4.32 10^6/uL (4.35-5.55); RED CELL DISTRIBUTION WIDTH 14.3 % (11.5-14.0); WHITE BLOOD COUNT 7.1 10^3/uL (4.0-10.5)
[2016-10-22 05:17] LABS: ANION GAP 12 (5-19); BLOOD UREA NITROGEN 17 mg/dL (7-20); CALCIUM 9.1 mg/dL (8.4-10.2); CARBON DIOXIDE 25 mmol/L (22-30); CHLORIDE 104 mmol/L (98-107); CREATININE RESULT 0.65 mg/dL (0.52-1.25); GLUCOSE 130 mg/dL (75-110); POTASSIUM 4.1 mmol/L (3.6-5.0); SODIUM 140.6 mmol/L (137-145)
[2016-10-22] MEDS: POLYETHYLENE GLYCOL 3350 POWDER 17 GM/1 PACKET PO SCH (10:26)
[2016-10-22] MEDS: DOCUSATE SODIUM 100 MG CAPSULE PO SCH ×2 (10:27→17:05)
[2016-10-22] MEDS: APIXABAN 2.5 MG TABLET PO SCH ×2 (10:27→17:05)
[2016-10-22] MEDS: SERTRALINE HCL 50 MG TABLET PO SCH (10:27)
[2016-10-22] MEDS: LISINOPRIL 5 MG TABLET PO SCH (10:28)
[2016-10-22] MEDS: FOLIC ACID 1 MG TABLET PO SCH (10:28)
[2016-10-22] MEDS: THIAMINE HCL 100 MG TABLET PO SCH (10:29)
[2016-10-22] MEDS: FLUCONAZOLE 100 MG TABLET PO SCH (10:29)
--- NOTE | 2016-10-22 10:38 | PDOC PROGRESS REPORT ---
Subjective Progress Note for:: 10/22/16 Subjective:: Denies any complaints. Physical Exam Vital Signs: Temp Pulse Resp BP Pulse Ox 98.1 F 47 L 18 137/83 H 100 10/22/16 07:38 10/22/16 07:38 10/22/16 07:38 10/22/16 07:38 10/22/16 07:38 Intake & Output 10/21/16 10/22/16 10/23/16 06:59 06:59 06:59 Intake Total 412 489 Output Total 800 1450 Balance -388 -961 Weight 102.5 kg 99.4 kg General appearance: PRESENT: no acute distress Eye exam: PRESENT: conjunctiva pink. ABSENT: scleral icterus Mouth exam: PRESENT: moist, tongue midline Neck exam: ABSENT: JVD Respiratory exam: PRESENT: clear to auscultation adilia. ABSENT: rales, rhonchi, wheezes Cardiovascular exam: PRESENT: RRR. ABSENT: diastolic murmur, rubs, systolic murmur GI/Abdominal exam: PRESENT: normal bowel sounds, soft. ABSENT: distended, guarding, mass, organolmegaly, rebound, tenderness Extremities exam: ABSENT: calf tenderness, clubbing, pedal edema Neurological exam: PRESENT: alert, awake, oriented to person, oriented to place. ABSENT: oriented to time, oriented to situation Psychiatric exam: PRESENT: appropriate affect Skin exam: PRESENT: dry, intact, warm. ABSENT: cyanosis, rash Results Laboratory Results: 10/22/16 03:46 10/22/16 03:46 10/21/16 10/22/16 10/22/16 10:45 03:46 03:46 WBC 7.1 RBC 4.32 L Hgb 12.3 L Hct 35.4 L MCV 82 MCH 28.6 MCHC 34.9 RDW 14.3 H Plt Count 178 Seg Neutrophils % 63.0 Lymphocytes % 25.6 Monocytes % 7.3 Eosinophils % 3.8 Basophils % 0.3 Absolute Neutrophils 4.5 Absolute Lymphocytes 1.8 Absolute Monocytes 0.5 Absolute Eosinophils 0.3 Absolute Basophils 0.0 Sodium 140.6 Potassium 4.1 Chloride 104 Carbon Dioxide 25 Anion Gap 12 BUN 17 Creatinine 0.65 Est GFR ( Amer) > 60 Est GFR (Non-Af Amer) > 60 Glucose 130 H Calcium 9.1 Urine Color YELLOW Urine Appearance CLOUDY Urine pH 5.0 Ur Specific [place] 1.015 Urine Protein 100 H Urine Glucose (UA) NEGATIVE Urine Ketones NEGATIVE Urine Blood LARGE H Urine Nitrite NEGATIVE Ur Leukocyte Esterase LARGE H Urine WBC (Auto) 56 Urine RBC (Auto) >182 10/15/16 06:18 Troponin I 0.023 Impressions: Chest X-Ray 10/14/16 18:08 IMPRESSION: NO ACUTE RADIOGRAPHIC FINDING IN THE CHEST. Head CT 10/15/16 00:00 IMPRESSION: CHRONIC CHANGES OF ATROPHY AND MICROVASCULAR ISCHEMIA. NO ACUTE PROCESS. Carotid Doppler Study 10/15/16 08:04 IMPRESSION: Less than 50% diameter stenosis of the right and left proximal internal carotid arteries at the carotid bifurcations. Head MRI 10/15/16 08:05 IMPRESSION: Extensive white matter disease from chronic small vessel ischemic change Single punctate focus of acute nonhemorrhagic ischemic change left posterior frontal subcortical white matter on diffusion imaging Assessment & Plan - Diagnosis (1) Acute CVA (cerebrovascular accident) Is this a current diagnosis for this admission?: YesPlan: The patient is on Eliquis because of his history of atrial fibrillation. The patient is weak and will need rehabilitation. (2) Acute encephalopathy Is this a current diagnosis for this admission?: YesPlan: Secondary to acute CVA and urinary tract infection. The patient has had treatment of the urinary tract infection. His confusion most likely is secondary to the CVA (3) Atrial fibrillation with RVR Is this a current diagnosis for this admission?: YesPlan: Patient is rate controlled and is on Eliquis. (4) BPH (benign prostatic hyperplasia) Is this a current diagnosis for this admission?: YesPlan: Asymptomatic (5) UTI (urinary tract infection) Qualifiers: Urinary tract infection type: site unspecified Is this a current diagnosis for this admission?: YesPlan: Patient is growing [place] from his urine and is on Diflucan. 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 Sugars range from 125-230. (8) Hyperlipidemia Qualifiers: Hyperlipidemia type: unspecified Qualified Code(s): E78.5 - Hyperlipidemia, unspecified Is this a current diagnosis for this admission?: YesPlan: Continue with Lipitor. (9) Hypertension Qualifiers: Hypertension type: essential hypertension Qualified Code(s): I10 - Essential (primary) hypertension Is this a current diagnosis for this admission?: YesPlan: Continue with lisinopril. Diltiazem was stopped secondary to asymptomatic bradycardia with a heart rate down into the 40s. - Time Time Spent with patient: 25-34 minutes - Plan Summary Plan Summary: Patient will need to go to rehabilitation when a bed becomes available.
[2016-10-22] MEDS: ATORVASTATIN CALCIUM 10 MG TABLET PO SCH (22:15)
[2016-10-22] MEDS: TAMSULOSIN HCL 0.4 MG CAP.SR.24H PO SCH (22:15)
[2016-10-22] MEDS: INSULIN GLARGINE,HUM.REC.ANLOG 300 UNIT/3 ML INSULN.PEN SUBCUT SCH (22:15)
[2016-10-23 06:05] LABS: ABSOLUTE EOSINOPHILS # (AUTO) 0.3 10^3/uL (0.0-0.6); ABSOLUTE LYMPHOCYTES (AUTO) 1.7 10^3/uL (0.5-4.7); ABSOLUTE MONOCYTES (AUTO) 0.5 10^3/uL (0.1-1.4); ABSOLUTE NEUT (AUTO) 4.4 10^3/uL (1.7-8.2); BASOPHILS % (AUTO) 0.3 % (0-2); EOSINOPHILS % (AUTO) 3.8 % (0-6); HEMATOCRIT 36.5 % (37.9-51.0); HEMOGLOBIN 12.5 g/dL (13.5-17.0); LYMPHOCYTES % (AUTO) 25.1 % (13-45); MEAN CORPUSCULAR HEMOGLOBIN 28.4 pg (27.0-33.4); MEAN CORPUSCULAR HGB CONC 34.2 g/dL (32.0-36.0); MEAN CORPUSCULAR VOLUME 83 fl (80-97); MONOCYTES % (AUTO) 7.5 % (3-13); SEGMENTED NEUTROPHILS % (AUTO) 63.3 % (42-78); WHITE BLOOD COUNT 6.9 10^3/uL (4.0-10.5)
[2016-10-23 06:20] LABS: ANION GAP 10 (5-19); BLOOD UREA NITROGEN 16 mg/dL (7-20); CALCIUM 9.3 mg/dL (8.4-10.2); CARBON DIOXIDE 25 mmol/L (22-30); CHLORIDE 104 mmol/L (98-107); CREATININE RESULT 0.61 mg/dL (0.52-1.25); GLUCOSE 139 mg/dL (75-110); SODIUM 139.2 mmol/L (137-145)
[2016-10-23] MEDS: THIAMINE HCL 100 MG TABLET PO SCH (09:16)
[2016-10-23] MEDS: POLYETHYLENE GLYCOL 3350 POWDER 17 GM/1 PACKET PO SCH (09:16)
[2016-10-23] MEDS: FOLIC ACID 1 MG TABLET PO SCH (09:16)
[2016-10-23] MEDS: FLUCONAZOLE 100 MG TABLET PO SCH (09:17)
[2016-10-23] MEDS: LISINOPRIL 5 MG TABLET PO SCH (09:17)
[2016-10-23] MEDS: SERTRALINE HCL 50 MG TABLET PO SCH (09:18)
[2016-10-23] MEDS: APIXABAN 2.5 MG TABLET PO SCH (09:18)
[2016-10-23] MEDS: DOCUSATE SODIUM 100 MG CAPSULE PO SCH (09:18)
--- NOTE | 2016-10-23 12:11 | PDOC TRANSFER SUMMARY ---
General - Admit/Disc Date/PCP Admission Date/Primary Care Provider: 10/15/16 00:13 EMILY LEAL MD Discharge Date: 10/23/16 - Discharge Diagnosis (1) Acute CVA (cerebrovascular accident) Is this a current diagnosis for this admission?: Yes (2) Acute encephalopathy Is this a current diagnosis for this admission?: Yes (3) Atrial fibrillation with RVR Is this a current diagnosis for this admission?: Yes (4) UTI (urinary tract infection) Is this a current diagnosis for this admission?: Yes (5) Status post below knee amputation of left lower extremity Is this a current diagnosis for this admission?: Yes (6) Diabetes mellitus, type II Is this a current diagnosis for this admission?: Yes (7) Hyperlipidemia Is this a current diagnosis for this admission?: Yes (8) Hypertension Is this a current diagnosis for this admission?: Yes (9) BPH (benign prostatic hyperplasia) Is this a current diagnosis for this admission?: Yes - Additional Information Resuscitation Status: Full Code Discharge Diet: Cardiac, Diabetic Discharge Activity: Activity As Tolerated Home Medications: Apixaban [Eliquis 2.5 mg Tablet] 2.5 mg PO Q12 10/15/16 Diltiazem HCl [Cartia Xt] 180 mg PO Q12 10/15/16 Docusate Sodium [Dok] 100 mg PO BID 10/15/16 Folic Acid [Folvite 1 mg Tablet] 1 mg PO DAILY 10/15/16 Lisinopril [Prinivil 2.5 mg Tablet] 2.5 mg PO DAILY 10/15/16 Pravastatin Sodium [Pravachol] 40 mg PO DAILY 10/15/16 Sertraline HCl [Zoloft 50 mg Tablet] 50 mg PO DAILY 10/15/16 Tamsulosin HCl [Flomax 0.4 mg Cap.sr] 0.4 mg PO QHS 10/15/16 Insulin Aspart [Novolog Flexpen] 0 unit SUBCUT .SLD SCALE #1 pen 10/23/16 Insulin Glargine,Hum.rec.anlog [Lantus Insulin 100 Unit/mL] 15 unit SUBCUT QHS insuln.pen 10/23/16 Polyethylene Glycol 3350 [Miralax Powder 17 gm/Packet] 17 gm PO DAILY powd.pack 10/23/16 History of Present Illness Admission Date/PCP: 10/15/16 00:13 EMILY LEAL MD Patient complains of: Confusion History of Present Illness: SLY SCHULTZ JR is a 66 year old obese male with reported underlying type II diabetes mellitus, chronic atrial fibrillation, on Eliquis for same hypertension, hyperlipidemia, and probable benign prostatic hypertrophy who presents to the emergency room by EMS for evaluation of above complaint. Hospital Course Hospital Course: Patient was brought to the emergency department from home for altered mental status. He was found to have an acute frontal lobe stroke. He was found to be very debilitated and have ambulatory dysfunction as a result of the stroke and left lower extremity amputation. His confusion has improved and at time of discharge he is alert and oriented to person/place/year. He was treated for a [place] urinary tract infection while in the hospital. He needs ongoing rehabilitative care. With regard to the stroke he is on a statin. He is also anticoagulated with Eliquis for atrial fibrillation. Physical Exam Vital Signs: Temp Pulse Resp BP Pulse Ox 98.6 F 110 H 16 150/88 H 100 10/23/16 07:23 10/23/16 07:23 10/23/16 07:23 10/23/16 07:23 10/23/16 07:23 Intake & Output 10/22/16 10/23/16 10/24/16 06:59 06:59 06:59 Intake Total 489 808 Output Total 1450 1400 Balance -961 -592 Weight 99.4 kg 98.9 kg GENERAL: No acute distress HEENT: Conjunctiva clear, nonicteric, moist mucous membranes, no JVD, midline trachea RESPIRATORY: Clear to auscultation bilaterally, no wheezes, no rhonchi CARDIAC: Regular rate and rhythm, no murmurs/gallops/rubs ABDOMEN: Soft, nondistended, nontender, positive bowel sounds, no rebound, no guarding EXTREMETIES: No edema. Left below knee amputation NEUROLOGIC: Alert, oriented to person, place, year, CN's grossly intact, no focal deficits SKIN: No rash, wounds PSYCH: Unusual affect Results Laboratory Results: 10/23/16 05:17 10/23/16 05:17 10/23/16 10/23/16 05: 05:17 WBC 6.9 RBC 4.40 Hgb 12.5 L Hct 36.5 L MCV 83 MCH 28.4 MCHC 34.2 RDW 14.0 Plt Count 203 Seg Neutrophils % 63.3 Lymphocytes % 25.1 Monocytes % 7.5 Eosinophils % 3.8 Basophils % 0.3 Absolute Neutrophils 4.4 Absolute Lymphocytes 1.7 Absolute Monocytes 0.5 Absolute Eosinophils 0.3 Absolute Basophils 0.0 Sodium 139.2 Potassium 4.0 Chloride 104 Carbon Dioxide 25 Anion Gap 10 BUN 16 Creatinine 0.61 Est GFR ( Amer) > 60 Est GFR (Non-Af Amer) > 60 Glucose 139 H Calcium 9.3 10/15/16 06:18 Troponin I 0.023 Impressions: Chest X-Ray 10/14/16 18:08 IMPRESSION: NO ACUTE RADIOGRAPHIC FINDING IN THE CHEST. Head CT 10/15/16 00:00 IMPRESSION: CHRONIC CHANGES OF ATROPHY AND MICROVASCULAR ISCHEMIA. NO ACUTE PROCESS. Carotid Doppler Study 10/15/16 08:04 IMPRESSION: Less than 50% diameter stenosis of the right and left proximal internal carotid arteries at the carotid bifurcations. Head MRI 10/15/16 08:05 IMPRESSION: Extensive white matter disease from chronic small vessel ischemic change Single punctate focus of acute nonhemorrhagic ischemic change left posterior frontal subcortical white matter on diffusion imaging Qualifiers PATEINT BEING DISCHARGED WITH ANY OF THE FOLLOWING DIAGNOSIS?: Stroke VTE patient discharged on overlapping Therapy?: Yes Stroke Pt being discharged on Anti-thrombolytic therapy?: Yes Stroke Pt being discharged on Anti-coagulation therapy?: Yes Stroke Pt being discharged on Statins?: Yes Plan Time Spent: Greater than 30 Minutes
[2016-10-23 12:55] VITALS: BP 151/86
== END 2016-10-23 17:14 | DRG 64 ==
LOC: ER 17:38 → UNDOADMIN 22:26 → EH 22:26 → 3N 10-15 17:23
PROVIDERS: ADMIT Family Medicine; ATTEND Family Medicine
PROC: 3E0F73Z Introduction of Anti-inflammatory into Respiratory Tract, Via Natural or Artificial Opening (ICD-10-PCS; principal; 2016-10-15)
DX: I63.9 Cerebral infarction, unspecified (principal); G93.40 Encephalopathy, unspecified; N39.0 Urinary tract infection, site not specified; E87.0 Hyperosmolality and hypernatremia; I48.2 Chronic atrial fibrillation; E11.9 Type 2 diabetes mellitus without complications; E78.5 Hyperlipidemia, unspecified; I10 Essential (primary) hypertension; N40.0 Benign prostatic hyperplasia without lower urinary tract symptoms; E86.0 Dehydration; R47.01 Aphasia; Z60.2 Problems related to living alone; E66.9 Obesity, unspecified; Z68.25 Body mass index [BMI] 25.0-25.9, adult; Z89.512 Acquired absence of left leg below knee; Z79.01 Long term (current) use of anticoagulants; Z79.4 Long term (current) use of insulin; Z79.899 Other long term (current) drug therapy
CPT/HCPCS: 36415; 51702; 70450; 70551; 71010; 80048; 80053; 80307; 81001; 82272; 82550; 82553; 82607; 82803; 82962; 83605; 83735; 84443; 84484; 85025; 85610; 87040; 87086; 93005; 93010; 93880; 96361; 96365; 96375; 99291; G8978-GP; G8979-GP; G9159-GN; G9160-GN; J0360; J0696; J1815; J3490; J7030